=== PATIENT | male | born 1965 | race Caucasian/White ===

== ENCOUNTER 2017-09-15 09:20 | Day surgery (SDC) | payer OTHER ==
[2017-09-15] MEDS ORDERED: LACTATED RINGERS 1,000 ML IV ONE (09:29)
[2017-09-15] MEDS ORDERED: fentaNYL 250 MCG/5 ML VIAL IVP ONE (10:09)
[2017-09-15] MEDS ORDERED: MIDAZOLAM 2 MG/2 ML VIAL IVP ONE (10:09)
[2017-09-15 11:42] VITALS: BP 109/56
== END 2017-09-15 09:21 | disposition home or self-care (01) ==
LOC: SDS 09:20
PROVIDERS: ATTEND Surgery
PROC: 0DBN8ZX Excision of Sigmoid Colon, Via Natural or Artificial Opening Endoscopic, Diagnostic (ICD-10-PCS; 2017-09-15)
PROC: 0DBK8ZX Excision of Ascending Colon, Via Natural or Artificial Opening Endoscopic, Diagnostic (ICD-10-PCS; principal; 2017-09-15 10:30)
DX: K57.30 Diverticulosis of large intestine without perforation or abscess without bleeding (principal); R93.3 Abnormal findings on diagnostic imaging of other parts of digestive tract; D12.5 Benign neoplasm of sigmoid colon; D12.2 Benign neoplasm of ascending colon; I10 Essential (primary) hypertension
CPT/HCPCS: 45380; J3010; J7120; 88305

== ENCOUNTER 2018-10-27 15:58 | Outpatient (CLI) | payer OTHER ==
--- NOTE | 2018-10-28 10:36 | XRAY Report ---
Reason: PAIN IN RIGHT HIP Procedure Date: 10/27/2018 Accession Number: [id number] / [id number] Procedure: XR - Hip w/Pelvis 2-3V RT CPT Code: FULL RESULT: EXAM: RIGHT HIP RADIOGRAPHY EXAM DATE: 10/27/2018 04:29 PM. CLINICAL HISTORY: Pain in right hip. COMPARISON: None. TECHNIQUE: 2 views. FINDINGS: Bones: The right femoral head is deformed and demonstrates increasing sclerosis as well as subchondral cysts, suggestive of avascular necrosis. No fracture is seen. Joints: There is complete loss of the right hip joint space with increasing subchondral cyst formation and osteophytosis. Soft Tissues: Normal. No soft tissue swelling. IMPRESSION: Endstage changes of the right hip with complete joint space loss and evidence of avascular necrosis. RADIA
== END 2018-10-27 15:59 | disposition home or self-care (01) ==
LOC: DI 15:58
PROVIDERS: ATTEND Family Medicine
DX: M16.11 Unilateral primary osteoarthritis, right hip (principal)

== ENCOUNTER 2019-07-22 09:32 | Outpatient (CLI) | payer OTHER ==
--- NOTE | 2019-07-22 17:13 | XRAY Report ---
Reason: OSTEOARTHRITIS LEFT HIP,CHRONIC LOW BACK PAIN Procedure Date: 07/22/2019 Accession Number: [id number] / [id number] Procedure: XR - Lumbar Spine 2 View CPT Code: Final Report FULL RESULT: EXAM: LUMBOSACRAL SPINE RADIOGRAPHY EXAM DATE: 07/22/2019 09:56 AM. CLINICAL HISTORY: OSTEOARTHRITIS LEFT HIP, CHRONIC LOW BACK PAIN. COMPARISONS: HIP W/PELVIS 2-3V LT 07/22/2019 9:43 AM. TECHNIQUE: 2 views. FINDINGS: Alignment: 4 mm spondylotic anterolisthesis L5 on S1. Minimal left convex lumbar spine curvature. Bones: Five [id number]-[id number] lumbar vertebral bodies are present. Transitional vertebral body at the lumbosacral junction, presumably S1. No fractures or bone lesions. Disks: Mild disk height loss at L3-L4 and L5-S1. Mild anterior endplate osteophyte formation L3-L4 through L5-S1. Facets: Mild left greater than right facet sclerosis at L5-S1. Sacroiliac Joints: Unremarkable. Soft Tissues: Normal. The visualized bowel gas pattern is normal. IMPRESSION: 1. Mild L3-L4, minimal L4-L5, mild L5-S1 degenerative disk disease. 2. Mild left greater than right L5-S1 facet osteoarthritis and spondylotic grade 1 anterolisthesis L5 on S1. RADIA
--- NOTE | 2019-07-22 17:15 | XRAY Report ---
Reason: OSTEOARTHRITIS LEFT HIP,CHRONIC LOW BACK PAIN Procedure Date: 07/22/2019 Accession Number: [id number] / [id number] Procedure: XR - Hip w/Pelvis 2-3V LT CPT Code: Final Report FULL RESULT: EXAM: LEFT HIP RADIOGRAPHY EXAM DATE: 07/22/2019 09:56 AM. CLINICAL HISTORY: OSTEOARTHRITIS LEFT HIP, CHRONIC LOW BACK PAIN. COMPARISON: HIP W/PELVIS 2-3V RT 10/27/2018 4:14 PM LUMBAR SPINE 2 VIEW 07/22/2019 9:43 AM. TECHNIQUE: 3 views. FINDINGS: Bones: Normal. No fractures or bone lesion. Joints: None a cemented right total hip arthroplasty now is present and shows grossly-anatomic alignment. Progressive moderate generalized left hip joint space narrowing without osteophyte formation, erosion, subchondral sclerosis, or subchondral cyst formation. Soft Tissues: Normal. No soft tissue swelling. IMPRESSION: 1. Moderate left hip chondromalacia, progressive since 10/27/2018. 2. Right total hip arthroplasty showing grossly-anatomic alignment. RADIA
== END 2019-07-22 09:33 | disposition home or self-care (01) ==
LOC: DI 09:32
PROVIDERS: ATTEND Family Medicine
DX: M94.252 Chondromalacia, left hip (principal); M16.12 Unilateral primary osteoarthritis, left hip; Z96.642 Presence of left artificial hip joint; M51.36 Other intervertebral disc degeneration, lumbar region; M51.37 Other intervertebral disc degeneration, lumbosacral region; M47.817 Spondylosis without myelopathy or radiculopathy, lumbosacral region; M43.17 Spondylolisthesis, lumbosacral region
CPT/HCPCS: 72100

== ENCOUNTER 2019-08-31 07:14 | Emergency (ER) | payer OTHER ==
--- NOTE | 2019-08-31 07:28 | ED Physician Documentation ---
PD HPI ABD PAIN - Stated complaint Stated Complaint: ABD PX - Chief complaint Chief Complaint: Abd Pain - History obtained from History obtained from: Patient - History of Present Illness Timing - onset: How many days ago (3-4) Timing - duration: Days (3-4) Timing - details: Gradual onset, Still present, Waxing and waning Quality: Cramping, Aching Location: Epigastric, LUQ Radiation: Lower back Improved by: BM. No: Eating Worsened by: Palpation. No: Eating, Moving, Breathing Associated symptoms: Nausea. No: Fever, Vomiting, Diarrhea Similar symptoms before: Diagnosis (had diverticulitis of transverse colon twice with similar symptoms. No prior gastritis/ulcers (had EGD and colonoscopy after prior episode).) Recently seen: Not recently seen Review of Systems Constitutional: reports: Fatigue. denies: Fever, Chills, Myalgias Nose: denies: Rhinorrhea / runny nose, Congestion Throat: denies: Sore throat Respiratory: denies: Cough GI: reports: Abdominal Pain, Nausea. denies: Vomiting, Constipation, Diarrhea, Bloody / black stool Skin: denies: Rash, Lesions Neurologic: reports: Generalized weakness. denies: Near syncope PD PAST MEDICAL HISTORY - Past Medical History Cardiovascular: Hypertension, High cholesterol Respiratory: None Endocrine/Autoimmune: None GI: Diverticulitis : Kidney stones HEENT: None Psych: None Musculoskeletal: None Derm: None - Past Surgical History Past Surgical History: No Derm: Skin cancer surgery - Present Medications Home Medications: Ambulatory Orders Medication Instructions Recorded Confirmed Naproxen Sodium [Aleve] 220 mg PO DAILY PRN 09/15/17 09/15/17 Cephalexin [Keflex] 500 mg PO TID #21 capsule 08/31/19 Hydrocodone/Acetaminophen [[place] 1 each PO Q6H PRN #20 tablet 08/31/19 5-325 Tablet] Ondansetron Odt [Zofran] 4 mg TL Q6H PRN #20 tablet 08/31/19 metroNIDAZOLE [Flagyl] 500 mg PO BID #14 tablet 08/31/19 - Allergies Allergies/Adverse Reactions: Allergies Allergy/AdvReac Type Severity Reaction Status Date / Time alcohol Allergy Edema Verified 08/31/19 07:18 - Social History Does the pt smoke?: No Smoking Status: Never smoker Does the pt drink ETOH?: No Does the pt have substance abuse?: No PD ED PE NORMAL - Vitals Vital signs reviewed: Yes - General General: Alert and oriented X 3, No acute distress, Well developed/nourished - HEENT HEENT: Moist mucous membranes, Pharynx benign - Neck Neck: Supple, no meningeal sign, No adenopathy - Cardiac Cardiac: RRR, No murmur - Respiratory Respiratory: Clear bilaterally - Abdomen Abdomen: Normal bowel sounds, Soft, Non distended, No organomegaly, Other (tender mid to left upper abd, not directly epigastric per se. No guarding/percussion nor rebound tenderness. Lower abd not tender. ) Results - Vitals Vitals: Oxygen O2 Source Room air - Labs Labs: Laboratory Tests 08/31/19 08/31/19 07:30 07:30 WBC 16.8 H RBC 5.22 Hgb 15.1 Hct 45.6 MCV 87.4 MCH 28.9 MCHC 33.1 RDW 13.7 Plt Count 263 MPV 10.2 Neut # (Auto) 12.9 H Lymph # (Auto) 2.4 [place] # (Auto) 1.1 H Eos # (Auto) 0.2 Baso # (Auto) 0.1 Absolute Nucleated RBC 0.00 Nucleated RBC % 0.0 Sodium 134 L Potassium 3.9 Chloride 103 Carbon Dioxide 22 Anion Gap 9.0 BUN 15 Creatinine 0.9 Estimated GFR (MDRD) 88 L Glucose 167 H Calcium 9.2 Total Bilirubin 1.2 H AST 27 ALT 28 Alkaline Phosphatase 59 Total Protein 7.8 Albumin 4.2 Globulin 3.6 Albumin/Globulin Ratio 1.2 Lipase 30 PD MEDICAL DECISION MAKING - ED course Complexity details: considered differential (he states feels similar to prior diverticulitis episodes x 2. Will treat empirically. He is good with no imaging, after shared decision making discussion. ), d/w patient Departure - Departure Disposition: 01 Home, Self Care Clinical Impression: Upper abdominal pain, Acute diverticulitis of intestine Condition: Stable Record reviewed to determine appropriate education?: Yes Instructions: ED Diverticulitis Follow-Up: Jose Alfredo Dhaliwal MD [Primary Care Provider] - Prescriptions: Cephalexin [Keflex] 500 mg PO TID #21 capsule Hydrocodone/Acetaminophen [[place] 5-325 Tablet] 1 each PO Q6H PRN #20 tablet PRN Reason: Pain metroNIDAZOLE [Flagyl] 500 mg PO BID #14 tablet Ondansetron Odt [Zofran] 4 mg TL Q6H PRN #20 tablet PRN Reason: Nausea / Vomiting Comments: Stay well-hydrated. Use ondansetron if needed for nausea and Tylenol or hydrocodone if needed for pain. Stool softener as needed. We will presume this is a episode of diverticulitis and treated with the cephalexin and metronidazole antibiotics. You can use some anti-inflammatory as well such as naproxen once or twice daily. Recheck if not improving well over the next couple of days and resolved within 4 to 5 days. Return if worsening. Discharge Date/Time: 08/31/19 09:36
[2019-08-31 07:46] LABS: BASOPHILS # (AUTO) 0.1 10^3/uL (0.0-0.1); BASOPHILS % (AUTO) 0.5 %; EOSINOPHILS # (AUTO) 0.2 10^3/uL (0.0-0.7); EOSINOPHILS % (AUTO) 1.1 %; HGB - HEMOGLOBIN 15.1 g/dL (14.0-18.0); LYMPHOCYTES # (AUTO) 2.4 10^3/uL (1.5-3.5); LYMPHOCYTES % (AUTO) 14.5 %; MEAN CORPUSCULAR HEMOGLOBIN 28.9 pg (27.0-31.0); MEAN CORPUSCULAR HGB CONC 33.1 g/dL (32.0-36.0); MEAN CORPUSCULAR VOLUME 87.4 fL (80.0-94.0); MEAN PLATELET VOLUME 10.2 fL (7.4-11.4); MONOCYTES # (AUTO) 1.1 10^3/uL (0.0-1.0); MONOCYTES % (AUTO) 6.6 %; NEUTROPHILS # (AUTO) 12.9 10^3/uL (1.5-6.6); NEUTROPHILS % (AUTO) 76.6 %; PLT - PLATELET COUNT 263 10^3/uL (130-450); RED BLOOD COUNT 5.22 10^6/uL (4.70-6.10); RED CELL DISTRIBUTION WIDTH 13.7 % (12.0-15.0); WHITE BLOOD COUNT 16.8 x10^3/uL (4.8-10.8)
[2019-08-31 08:02] LABS: ALBUMIN 4.2 g/dL (3.2-5.5); ALBUMIN/GLOBULIN RATIO 1.2 (1.0-2.2); BILIRUBIN,TOTAL 1.2 mg/dL (0.2-1.0); CALCIUM 9.2 mg/dL (8.5-10.3); CREATININE 0.9 mg/dL (0.6-1.2); TOTAL PROTEIN 7.8 g/dL (6.7-8.2)
[2019-08-31] MEDS: SODIUM CHLORIDE 0.9% 1,000 ML IV ONE (08:14)
[2019-08-31] MEDS: KETOROLAC 30 MG/ML VIAL IVP STA (08:14)
[2019-08-31] MEDS: cefTRIAXone 1 GM VIAL IVP STA (08:14)
[2019-08-31] MEDS: metroNIDAZOLE 250 MG TABLET PO STA (08:14)
[2019-08-31] MEDS: HYDROmorphone 1 MG/ML CARPUJECT IVP STA ×2 (08:29→08:37)
[2019-08-31] MEDS: HYDROmorphone 1 MG/ML SYRINGE IVP STA (08:37)
[2019-08-31] MEDS: HYDROmorphone 0.5 MG/0.5 ML SYRINGE IVP STA (08:37)
[2019-08-31 09:05] VITALS: BP 137/68
== END 2019-08-31 09:36 | disposition home or self-care (01) ==
LOC: ED 07:14
DX: K57.92 Diverticulitis of intestine, part unspecified, without perforation or abscess without bleeding (principal); I10 Essential (primary) hypertension
CPT/HCPCS: 36415; 80053; 83690; 85025; 96374; 96375; 99284

== ENCOUNTER 2020-04-04 10:27 | Outpatient (CLI) | payer OTHER ==
--- NOTE | 2020-04-04 13:16 | Ultrasound Report ---
PROCEDURE: Chest INDICATIONS: LUMP RIGHT UPPER BACK TECHNIQUE: Real-time scanning was performed in the area of interest at the right upper back, with documentation of grayscale and color flow images. COMPARISON: None. FINDINGS: A 0.5 x 0.3 x 0.5 cm oval hypoechoic lesion is seen within the skin in the area of interest at the [facility] upper back. No significant internal vascularity is identified. IMPRESSION: Nonspecific 5 mm hypoechoic lesion in the skin of the right upper back at the patient indicated an ar ea of concern. Differential considerations include benign and malignant skin lesions, and correlation with clinical exam findings and possible Dermatology consultation are recommended. Reviewed by: Jose J Deluna MD on 04/04/2020 12:15 PM [facility] Approved by: Jose J Deluna MD on 04/04/2020 12:15 PM [facility] Station ID: [id number]
== END 2020-04-04 10:28 | disposition home or self-care (01) ==
LOC: DI 10:27
PROVIDERS: ATTEND Nurse Practitioner Family
DX: R93.89 Abnormal findings on diagnostic imaging of other specified body structures (principal)

== ENCOUNTER 2020-08-12 12:36 | Emergency (ER) | payer OTHER ==
[2020-08-12 12:59] LABS: BASOPHILS # (AUTO) 0.1 10^3/uL (0.0-0.1); BASOPHILS % (AUTO) 0.8 %; EOSINOPHILS # (AUTO) 0.3 10^3/uL (0.0-0.7); EOSINOPHILS % (AUTO) 3.4 %; HCT - HEMATOCRIT 46.7 % (42.0-52.0); HGB - HEMOGLOBIN 15.6 g/dL (14.0-18.0); LYMPHOCYTES # (AUTO) 2.9 10^3/uL (1.5-3.5); LYMPHOCYTES % (AUTO) 30.2 %; MEAN CORPUSCULAR HGB CONC 33.4 g/dL (32.0-36.0); MEAN CORPUSCULAR VOLUME 86.8 fL (80.0-94.0); MEAN PLATELET VOLUME 10.7 fL (7.4-11.4); MONOCYTES # (AUTO) 0.9 10^3/uL (0.0-1.0); MONOCYTES % (AUTO) 9.3 %; NEUTROPHILS # (AUTO) 5.5 10^3/uL (1.5-6.6); NEUTROPHILS % (AUTO) 56.1 %; RED BLOOD COUNT 5.38 10^6/uL (4.70-6.10); WHITE BLOOD COUNT 9.7 x10^3/uL (4.8-10.8)
[2020-08-12 13:02] LABS: SLIDE REVIEW? Indicated
[2020-08-12] MEDS ORDERED: DEXAMETHASONE 10 MG/ML VIAL IVP STA (13:03)
[2020-08-12] MEDS ORDERED: KETOROLAC 30 MG/ML VIAL IVP STA (13:03)
[2020-08-12] MEDS ORDERED: SODIUM CHLORIDE 0.9% 1,000 ML IV STA (13:03)
[2020-08-12 13:11] LABS: ALBUMIN 4.8 g/dL (3.2-5.5); ALBUMIN/GLOBULIN RATIO 1.7 (1.0-2.2); BILIRUBIN,TOTAL 0.5 mg/dL (0.2-1.0); CALCIUM 10.2 mg/dL (8.5-10.3); CREATININE 0.8 mg/dL (0.6-1.2); POTASSIUM 4.1 mmol/L (3.5-5.0); TOTAL PROTEIN 7.7 g/dL (6.7-8.2)
[2020-08-12 13:14] LABS: PLATELET MORPHOLOGY NORMAL APPEARANCE (NORMAL); PLT - PLATELET COUNT 221 10^3/uL (130-450)
[2020-08-12 13:20] LABS: BILIRUBIN,URINE NEGATIVE (NEGATIVE); GLUCOSE, URINE (UA) NEGATIVE (NEGATIVE); KETONES,URINE (UA) NEGATIVE (NEGATIVE); LEUKOCYTE ESTERASE, URINE NEGATIVE (NEGATIVE); NITRITE,URINE NEGATIVE (NEGATIVE); OCCULT BLOOD,URINE NEGATIVE (NEGATIVE); PROTEIN,URINE NEGATIVE (NEGATIVE); UROBILINOGEN,URINE 0.2 (NORMAL) E.U./dL (NORMAL)
[2020-08-12 13:25] LABS: CLARITY,URINE CLEAR (CLEAR)
--- NOTE | 2020-08-12 14:15 | ED Physician Documentation ---
PD HPI BACK PAIN - Stated complaint Stated Complaint: BACK/ABD PX - Chief complaint Chief Complaint: Abd Pain - History obtained from History obtained from: Patient - History of Present Illness Timing - onset: Today Timing - duration: Hours Timing - details: Abrupt onset, Still present Location: Lower, Right, Left Quality: Pain, Spasm, Sharp, Similar to prior episodes Associated symptoms: No: Fever, Weakness, Numbness, Incontinent of urine, Unable to urinate, Hematuria, Incontinent of stool Improves with: Rest, Position Worsened by: Movement Contributing factors: Other (works as a sole painter) Similar symptoms before: Diagnosis (kidney stone/diverticuliltis) Recently seen: Not recently seen - Additional information Additional information: 54-year-old male with a prior history of kidney stone is coming to the emergency department this morning with pain in his back. He states the pain started out severely when he went to bend over slightly and he has this pain bilaterally. He felt at first maybe he had a problem with his diverticulitis but he did not find that he had any tenderness. He does have pain when he moves and if he is quite still he has improvement in his pain. 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 He has had episodes of back spasm previously that are short-lived and usually resolve with stretching. He does have a problem with cramping in his legs especially at night and especially if he does not adequately hydrate. Review of Systems Constitutional: denies: Fever Eyes: denies: Decreased vision Ears: denies: Ear pain Nose: denies: Congestion Throat: denies: Sore throat Cardiac: denies: Chest pain / pressure Respiratory: denies: Dyspnea, Cough, Wheezing GI: denies: Abdominal Pain, Nausea, Vomiting, Diarrhea : denies: Dysuria, Frequency Skin: denies: Rash Musculoskeletal: reports: Back pain. denies: Neck pain, Extremity pain Neurologic: denies: Generalized weakness, Focal weakness, Numbness PD PAST MEDICAL HISTORY - Past Medical History Past Medical History: Yes Cardiovascular: Hypertension, High cholesterol Respiratory: None Neuro: None Endocrine/Autoimmune: None GI: Diverticulitis : Kidney stones HEENT: None Psych: None Musculoskeletal: None Derm: None - Past Surgical History Past Surgical History: Yes Ortho: Hip replacement Derm: Skin cancer surgery - Present Medications Home Medications: Ambulatory Orders Medication Instructions Recorded Confirmed Naproxen Sodium [Aleve] 220 mg PO DAILY PRN 09/15/17 09/15/17 Hydrocodone/Acetaminophen [[place] 1 each PO Q6H PRN #20 tablet 08/31/19 5-325 Tablet] Ondansetron Odt [Zofran] 4 mg TL Q6H PRN #20 tablet 08/31/19 cephALEXin [Keflex] 500 mg PO TID #21 capsule 08/31/19 metroNIDAZOLE [Flagyl] 500 mg PO BID #14 tablet 08/31/19 - Allergies Allergies/Adverse Reactions: Allergies Allergy/AdvReac Type Severity Reaction Status Date / Time alcohol Allergy Edema Verified 08/12/20 12:39 - Social History Does the pt smoke?: No Smoking Status: Never smoker Does the pt drink ETOH?: No Does the pt have substance abuse?: No - Immunizations Immunizations are current?: Yes PD ED PE NORMAL - Vitals Vital signs reviewed: Yes (Hypertensive mild) - General General: Alert and oriented X 3, No acute distress, Well developed/nourished - HEENT HEENT: Atraumatic, PERRL, EOMI - Neck Neck: Supple, no meningeal sign - Cardiac Cardiac: RRR, No murmur - Respiratory Respiratory: No respiratory distress, Clear bilaterally - Abdomen Abdomen: Normal bowel sounds, Soft, Non tender, Non distended, No organomegaly - Back Back: No CVA TTP, No spinal TTP, Other (There is mild tenderness to the paraspinous muscles at the L2 level bilaterally worse on the left than the right. 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, No motor deficit, No sensory deficit, Normal speech Eye Opening: Spontaneous Motor: Obeys Commands Verbal: Oriented GCS Score: 15 - Psych Psych: Normal mood, Normal affect Results - Vitals Vitals: Vital Signs - 24 hr 08/12/20 08/12/20 12:39 13:04 Temperature 36.6 C Heart Rate 61 56 L Respiratory 16 16 Rate Blood Pressure 160/80 H 161/87 H O2 Saturation 99 97 Oxygen O2 Source Room air - Labs Labs: Laboratory Tests 08/12/20 08/12/20 08/12/20 12:45 12:52 12:52 WBC 9.7 RBC 5.38 Hgb 15.6 Hct 46.7 MCV 86.8 MCH 29.0 MCHC 33.4 RDW 13.0 Plt Count 221 MPV 10.7 Neut # (Auto) 5.5 Lymph # (Auto) 2.9 [place] # (Auto) 0.9 Eos # (Auto) 0.3 Baso # (Auto) 0.1 Absolute Nucleated RBC 0.00 Nucleated RBC % 0.0 Manual Slide Review Indicated Platelet Morphology NORMAL APPEARANCE Sodium 137 Potassium 4.1 Chloride 104 Carbon Dioxide 24 Anion Gap 9.0 BUN 24 H Creatinine 0.8 Estimated GFR (MDRD) 101 Glucose 99 Calcium 10.2 Total Bilirubin 0.5 AST 34 ALT 46 Alkaline Phosphatase 51 Total Protein 7.7 Albumin 4.8 Globulin 2.9 Albumin/Globulin Ratio 1.7 Lipase 35 Urine Color LIGHT YELLOW Urine Clarity CLEAR Urine pH 6.0 Ur Specific [place] <=1.005 Urine Protein NEGATIVE Urine Glucose (UA) NEGATIVE Urine Ketones NEGATIVE Urine Occult Blood NEGATIVE Urine Nitrite NEGATIVE Urine Bilirubin NEGATIVE Urine Urobilinogen 0.2 (NORMAL) Ur Leukocyte Esterase NEGATIVE Ur Microscopic Review NOT INDICATED Urine Culture Comments NOT INDICATED Procedures - Bedside sono Bedside sono by EMP: With use of bedside ultrasound the right kidney is imaged 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 The kidney is sonographically nontender. The left is imaged as well with similar findings with the exception of there is only a single kidney on the left side. - IVC sono (time) 1255 Bedside IVC sono: IVC measures (cm) (0.92), Dehydration (est 1-2 liter deficit) PD MEDICAL DECISION MAKING - ED course Complexity details: reviewed results, re-evaluated patient, considered differential, d/w patient ED course: 54-year-old male with acute back spasm is found to be dehydrated on interrogation the inferior vena cava and his administered intravenous saline. He is also administered intravenous dexamethasone and Toradol. He has improvement in his pain. He was worried about the possibility of diverticulitis and possibly kidney stone. He has a nontender exam he is afebrile with normal white blood cell count and he has on bedside ultrasound no evidence of hydronephrosis. He has bilateral pain tender muscles in pain with movement. Departure - Departure Disposition: 01 Home, Self Care Clinical Impression: Spasm of back muscles, Dehydration Condition: Stable Instructions: ED Spasm Back No Trauma, ED Dehydration Follow-Up: Jose Alfredo Dhaliwal MD [Primary Care Provider] -
[2020-08-12 14:29] VITALS: BP 148/89
== END 2020-08-12 14:32 | disposition home or self-care (01) ==
LOC: ED 12:36
DX: M62.830 Muscle spasm of back (principal); E86.0 Dehydration
CPT/HCPCS: 36415; 80053; 81001; 81003; 83690; 85025; 87086; 96361; 96374; 96375; 99284

== ENCOUNTER 2021-11-30 14:59 | Outpatient (CLI) | payer OTHER ==
--- NOTE | 2021-11-30 16:27 | XRAY Report ---
PROCEDURE: Foot 3 View RT INDICATIONS: PAIN IN RIGHT FOOT TECHNIQUE: 3 views of the foot were acquired. COMPARISON: None FINDINGS: Bones: No fractures or dislocations. No suspicious bony lesions. Joint space narrowing and periart icular osteophyte formation at the first metatarsophalangeal joint. Calcaneal spurring is present. Soft tissues: No tibiotalar joint effusion. Achilles tendon appears normal. IMPRESSION: 1. Osteoarthritis. 2. Calcaneal spurring which may indicate plantar fasciitis and/or Achilles tendinitis. This could be further assessed with MRI, if clinically indicated. 3. No acute fracture. No osseous lesion. If symptoms and/or clinical suspicion for pathology continue , further assessment with repeat plain films, or advanced imaging (e.g., CT, MRI, or bone scan) is re commended for further assessment. Reviewed by: Basilia Cao MD on 11/30/2021 4:25 PM PDT Approved by: Basilia Cao MD on 11/30/2021 4:25 PM PDT Station ID: [id number]
== END 2021-11-30 15:00 | disposition home or self-care (01) ==
LOC: DI 14:59
PROVIDERS: ATTEND Physician Assistant
DX: M19.071 Primary osteoarthritis, right ankle and foot (principal); M77.31 Calcaneal spur, right foot

== ENCOUNTER 2022-08-16 13:03 | Outpatient (CLI) | payer OTHER | END 2022-08-16 13:04 | disposition critical access hospital (66) | LOC: EMS 13:03 | DX: R10.84 Generalized abdominal pain (principal); K59.00 Constipation, unspecified; R14.0 Abdominal distension (gaseous); Z98.890 Other specified postprocedural states | CPT/HCPCS: A0425; A0429 ==

== ENCOUNTER 2022-08-16 13:19 | Emergency (ER) | payer OTHER ==
[2022-08-16] MEDS ORDERED: LORazepam 2 MG/ML VIAL IVP STA (13:38)
[2022-08-16] MEDS ORDERED: SODIUM CHLORIDE 0.9% 1,000 ML IV STA (13:38)
[2022-08-16] MEDS ORDERED: KETOROLAC 15 MG/ML VIAL IVP STA (13:38)
--- NOTE | 2022-08-16 13:39 | ED Physician Documentation ---
PD HPI ABD PAIN - Stated complaint Stated Complaint: ABD PX - Chief complaint Chief Complaint: Abd Pain - History obtained from History obtained from: Patient - Additional information Additional information: 56-year-old gentleman had a hip replacement a few days ago and has been on oxycodone. He has not been able to have a bowel movement since and has severe rectal pain and now urinary retention as well and he is very uncomfortable with body wide spasms related to this. He tried magnesium at home and a suppository which were ineffective. PD PAST MEDICAL HISTORY - Past Medical History Cardiovascular: Hypertension, High cholesterol Respiratory: None Neuro: None Endocrine/Autoimmune: None GI: Diverticulitis : Kidney stones HEENT: None Psych: None Musculoskeletal: None Derm: None - Past Surgical History Past Surgical History: Yes Ortho: Hip replacement Derm: Skin cancer surgery - Present Medications Home Medications: Ambulatory Orders Medication Instructions Recorded Confirmed Naproxen Sodium [Aleve] 220 mg PO DAILY PRN 09/15/17 09/15/17 Hydrocodone/Acetaminophen [[place] 1 each PO Q6H PRN #20 tablet 08/31/19 5-325 Tablet] Ondansetron Odt [Zofran] 4 mg TL Q6H PRN #20 tablet 08/31/19 cephALEXin [Keflex] 500 mg PO TID #21 capsule 08/31/19 metroNIDAZOLE [Flagyl] 500 mg PO BID #14 tablet 08/31/19 - Allergies Allergies/Adverse Reactions: Allergies Allergy/AdvReac Type Severity Reaction Status Date / Time alcohol Allergy Edema Verified 08/16/22 13:33 - Social History Does the pt smoke?: No Smoking Status: Never smoker Does the pt drink ETOH?: No Does the pt have substance abuse?: No - Immunizations Immunizations are current?: Yes PD ED PE NORMAL - Vitals Vital signs reviewed: Yes - General General: Alert and oriented X 3, Other (Appears uncomfortable) - Abdomen Abdomen: Soft, Non tender - Rectal Rectal: Other (Large firm fecal impaction) Results - Vitals Vitals: Vital Signs - 24 hr 08/16/22 13:27 Temperature 36.8 C Heart Rate 76 Respiratory 18 Rate Blood Pressure 174/99 H O2 Saturation 98 Oxygen O2 Source Room air PD Medical Decision Making - ED course ED course: 56-year-old gentleman presents with opiate induced fecal impaction. After combination of digital disimpaction and an enema he had a large successful bowel movement and his urinary retention also resolved. Departure - Departure Disposition: 01 Home, Self Care Clinical Impression: Fecal impaction Condition: Good Record reviewed to determine appropriate education?: Yes Instructions: ED Impaction Fecal Treated Comments: Reasonable to take [id number] MiraLAX for the next couple of days to keep the bowels moving. Return for new or worsening symptoms.
--- OUTSIDE RECORDS SUMMARY | 2022-08-16 14:36 | EXTERNAL MEDICAL SUMMARY RPT | Continuity of Care Document ---
:1965 Author Organization [facility] Address [address] [place] [address] Phone Care Team Providers Name Role Phone Unavailable Unavailable Unavailable Jose Alfredo Dhaliwal Unavailable Unavailable Allergies and Intolerances date description facility type (no date) alcohol [facility] (unknown) Encounters No information. Functional Status No information. Immunizations No information. Medications date description facility 2022-07-10 00:00 Celecoxib [facility] 2022-07-10 00:00 Rosuvastatin [facility] 2022-08-14 00:00 Hydroxyzine Pamoate [facility] Problems date description facility 2022-07-01 07:11 Urinary tract infection, site not [facility] 2022-07-01 07:11 Hyperglycemia, unspecified [facility] 2022-07-01 07:11 Encounter for preprocedural [facility] examination 2022-07-01 07:11 Encounter for other preprocedural [facility] 2022-07-01 07:17 Urinary tract infection, site not [facility] 2022-07-01 07:17 Hyperglycemia, unspecified [facility] 2022-07-01 07:17 Encounter for preprocedural [facility] examination 2022-07-01 07:17 Encounter for other preprocedural [facility] 2022-07-02 09:43 Urinary tract infection, site not [facility] 2022-07-02 09:43 Hyperglycemia, unspecified [facility] 2022-07-02 09:43 Encounter for preprocedural [facility] examination 2022-07-02 09:43 [facility] 2022-08-13 00:00 Arthritis of [facility] 2022-08-13 06:05 Unilateral primary osteoarthritis, [facility] 2022-08-13 06:05 Pain in right [facility] 2022-08-13 06:48 Unilateral primary osteoarthritis, left [facility] 2022-08-13 06:48 Pain in right [facility] 2022-08-13 08:51 Unilateral primary osteoarthritis, [facility] 2022-08-13 08:51 Unilateral primary osteoarthritis, left [facility] 2022-08-13 08:51 Pain in right [facility] 2022-08-13 08:55 Unilateral primary osteoarthritis, [facility] hip 2022-08-13 08:55 Unilateral primary osteoarthritis, left [facility] 2022-08-13 08:55 Pain in right [facility] 2022-08-14 07:01 Unilateral primary osteoarthritis, [facility] 2022-08-14 07:01 Unilateral primary osteoarthritis, left [facility] 2022-08-14 07:01 Pain in right [facility] 2022-08-14 08:11 Unilateral primary osteoarthritis, [facility] 2022-08-14 08:11 Unilateral primary osteoarthritis, left [facility] 2022-08-14 08:11 Pain in right [facility] 2022-08-14 10:04 Unilateral primary osteoarthritis, [facility] 2022-08-14 10:04 Unilateral primary osteoarthritis, left [facility] 2022-08-14 10:04 Pain in right [facility] 2022-08-14 11:16 Unilateral primary osteoarthritis, [facility] 2022-08-14 11:16 Unilateral primary osteoarthritis, left [facility] 2022-08-14 11:16 Pain in right [facility] 2022-08-14 13:24 Unilateral primary osteoarthritis, [facility] 2022-08-14 13:24 Unilateral primary osteoarthritis, left [facility] 2022-08-14 13:24 Pain in right [facility] Procedures date description facility 2022-08-13 00:00 XR pelvis, 1-2 views [facility] 2022-08-13 00:00 Unilateral x-ray of hip, two views, wit h x-ray [facility] of pelvis 2022-08-13 00:00 Total Hip Arthroplasty (Left) [facility] Results/Labs test date author facility value unit interpret ation Result panel 1 (unknown) (no date) (unknown) [facility]) Result panel 2 (unknown) (no date) (unknown) [facility] Result panel 3 (unknown) (no date) ([facility]) Result panel 4 (unknown) (no date) (unknown[facility]) Result panel 5 (unknown) (no date) (unknown[facility]) Result panel 6 (unknown) (no date) (unknown[facility]) Result panel 7 (unknown) (no date) (unknown[facility]) Result panel 8 (unknown) (no date) (unknown[facility]) Result panel 9 (unknown) (no date) (unknown[facility]) Result panel 10 (unknown) (no date) (unknown[facility]) Result panel 11 (unknown) (no date) (unknown[facility]) Result panel 12 (unknown) (no date) (unknown[facility]) Result panel 13 (unknown) (no date) (unknown[facility]) Result panel 14 (unknown) (no date) (unknown[facility]) Result panel 15 (unknown) (no date) (unknown[facility]) Result panel 16 (unknown) (no date) (unknown[facility]) Result panel 17 (unknown) (no date) (unknown[facility]) Result panel 18 (unknown) (no date) (unknown[facility]) Result panel 19 (unknown) (no date) (unknown[facility]) Result panel 20 (unknown) (no date) (unknown[facility]) Result panel 21 (unknown) (no date) (unknown[facility]) Result panel 22 (unknown) (no date) (unknown[facility]) Result panel 23 (unknown) (no date) (unknown[facility]) Result panel 24 (unknown) (no date) (unknown[facility]) Result panel 25 (unknown) (no date) (unknown[facility]) Result panel 26 (unknown) (no date) (unknown[facility]) Result panel 27 (unknown) (no date) (unknown[facility]) Result panel 28 (unknown) (no date) (unknown[facility]) Result panel 29 (unknown) (no date) (unknown[facility]) Result panel 30 (unknown) (no date) (unknown[facility]) Result panel 31 (unknown) (no date) (unknown[facility]) Result panel 32 (unknown) (no date) (unknown[facility]) Result panel 33 (unknown) (no date) (unknown[facility]) Result panel 34 (unknown) (no date) (unknown[facility]) Result panel 35 (unknown) (no date) (unknown[facility]) Result panel 36 (unknown) (no date) (unknown[facility]) Result panel 37 (unknown) (no date) (unknown[facility]) Result panel 38 (unknown) (no date) (unknown[facility]) Result panel 39 (unknown) (no date) (unknown[facility]) Result panel 40 (unknown) (no date) (unknown[facility]) Result panel 41 (unknown) (no date) (unknown[facility]) Result panel 42 (unknown) (no date) (unknown[facility]) Result panel 43 (unknown) (no date) (unknown[facility]) Result panel 44 (unknown) (no date) (unknown[facility]) Result panel 45 (unknown) (no date) (unknown[facility]) Result panel 46 (unknown) (no date) (unknown[facility]) Result panel 47 (unknown) (no date) (unknown[facility]) Result panel 48 (unknown) (no date) (unknown[facility]) Result panel 49 (unknown) (no date) (unknown[facility]) Result panel 50 (unknown) (no date) (unknown[facility]) Result panel 51 (unknown) (no date) (unknown[facility]) Result panel 52 (unknown) (no date) (unknown[facility]) Result panel 53 (unknown) (no date) (unknown[facility]) Result panel 54 (unknown) (no date) (unknown[facility]) Result panel 55 (unknown) (no date) (unknown[facility]) Result panel 56 (unknown) (no date) (unknown[facility]) Result panel 57 (unknown) (no date) (unknown[facility]) Result panel 58 (unknown) (no date) (unknown[facility]) Result panel 59 (unknown) (no date) (unknown[facility]) Result panel 60 (unknown) (no date) (unknown[facility]) Result panel 61 (unknown) (no date) (unknown[facility]) Result panel 62 (unknown) (no date) (unknown[facility]) Result panel 63 (unknown) (no date) (unknown[facility]) Result panel 64 (unknown) (no date) (unknown[facility]) Result panel 65 (unknown) (no date) (unknown[facility]) Result panel 66 (unknown) (no date) (unknown[facility]) Result panel 67 (unknown) (no date) (unknown[facility]) Result panel 68 (unknown) (no date) (unknown[facility]) Result panel 69 (unknown) (no date) (unknown[facility]) Result panel 70 (unknown) (no date) (unknown[facility]) Result panel 71 (unknown) (no date) (unknown[facility]) Result panel 72 (unknown) (no date) (unknown[facility]) Result panel 73 (unknown) (no date) (unknown[facility]) Result panel 74 (unknown) (no date) (unknown[facility]) Result panel 75 (unknown) (no date) (unknown[facility]) Result panel 76 (unknown) (no date) (unknown[facility]) Result panel 77 (unknown) (no date) (unknown[facility]) Result panel 78 (unknown) (no date) (unknown[facility]) Result panel 79 (unknown) (no date) (unknown[facility]) Result panel 80 (unknown) (no date) (unknown[facility] Result panel 81 (unknown) (no date) (unknown) (unknown) > 60 ml/min (unkn own) (unknown) (no date) (unknown) (unknown) > 60 ml/min (unkn own) (unknown) (no date) (unknown) (unknown) 0.71 mg/dl (unkn own) (unknown) (no date) (unknown) (unknown) 102 mmol/l (unkn own) (unknown) (no date) (unknown) (unknown) 137 mmol/l (unkn own) (unknown) (no date) (unknown) (unknown) 17 mg/dl (unkn own) (unknown) (no date) (unknown) (unknown) 23.9 (units unknown) (unknown) (unknown) (no date) (unknown) (unknown) 25 mmol/l (unkn own) (unknown) (no date) (unknown) (unknown) 4.2 mmol/l (unkn own) (unknown) (no date) (unknown) (unknown) 9.0 mg/dl (unkn own) (unknown) (no date) (unknown) (unknown) 90 mg/dl (unkn own) (unknown) (no date) (unknown) (unknown) 90 mg/dl (unkn own) Result panel 82 (unknown) (no date) (unknown) (unknown) 0.8 % (unkn own) (unknown) (no date) (unknown) (unknown) 10.4 % (unkn own) (unknown) (no date) (unknown) (unknown) 100 /ul (unkn own) (unknown) (no date) (unknown) (unknown) 13.4 % (unkn own) (unknown) (no date) (unknown) (unknown) 15.6 g/dl (unkn own) (unknown) (no date) (unknown) (unknown) 200 /ul (unkn own) (unknown) (no date) (unknown) (unknown) 236 x10 3/ul (unkn own) (unknown) (no date) (unknown) (unknown) 2700 /ul (unkn own) (unknown) (no date) (unknown) (unknown) 29.2 pg (unkn own) (unknown) (no date) (unknown) (unknown) 3.0 % (unkn own) (unknown) (no date) (unknown) (unknown) 33.9 % (unkn own) (unknown) (no date) (unknown) (unknown) 34.6 % (unkn own) (unknown) (no date) (unknown) (unknown) 4100 /ul (unkn own) (unknown) (no date) (unknown) (unknown) 45.9 % (unkn own) (unknown) (no date) (unknown) (unknown) 5.34 x10 6/ul (unkn own) (unknown) (no date) (unknown) (unknown) 51.2 % (unkn own) (unknown) (no date) (unknown) (unknown) 7.9 x10 3/ul (unkn own) (unknown) (no date) (unknown) (unknown) 800 /ul (unkn own) (unknown) (no date) (unknown) (unknown) 86.1 fl (unkn own) Result panel 83 (unknown) (no date) (unknown) (unknown) 0.2 e.u./dl (unkn own) (unknown) (no date) (unknown) (unknown) 1.025 (units (unkn own) unknown) (unknown) (no date) (unknown) (unknown) 6.0 (units (unkn own) unknown) (unknown) (no date) (unknown) (unknown) CLEAR (units (unkn own) unknown) (unknown) (no date) (unknown) (unknown) NEGATIVE (units (unkn own) unknown) (unknown) (no date) (unknown) (unknown) NEGATIVE g/dl (unkn own) (unknown) (no date) (unknown) (unknown) YELLOW (units (unkn own) unknown) (unknown) (no date) (unknown) (unknown) YELLOW (units (unkn own) unknown) Result panel 84 (unknown) (no date) (unknown) (unknown) 0-1 /HPF (units (unkn own) unknown) (unknown) (no date) (unknown) (unknown) 0-1/HPF (units (unkn own) unknown) (unknown) (no date) (unknown) (unknown) 0.2 e.u./dl (unkn own) (unknown) (no date) (unknown) (unknown) 1.025 (units (unkn own) unknown) (unknown) (no date) (unknown) (unknown) 6.0 (units (unkn own) unknown) (unknown) (no date) (unknown) (unknown) CLEAR (units (unkn own) unknown) (unknown) (no date) (unknown) (unknown) Cult Not (units (unkn own) Indicated unknown) (unknown) (no date) (unknown) (unknown) NEGATIVE (units (unkn own) unknown) (unknown) (no date) (unknown) (unknown) NEGATIVE g/dl (unkn own) (unknown) (no date) (unknown) (unknown) None Seen (units (unk nown) unknown) (unknown) (no date) (unknown) (unknown) Occasional (units (un known) (0-1) unknown) (unknown) (no date) (unknown) (unknown) YELLOW (units (unkn own) unknown) (unknown) (no date) (unknown) (unknown) YELLOW (units (unkn own) unknown) Result panel 85 (unknown) (no date) (unknown) (unknown) 5.4 % (unkn own) (unknown) (no date) (unknown) (unknown) 5.4 % (unkn own) Result panel 86 (unknown) (no (unknown) (unknown) (no value) (units (unk nown) date) unknown) (unknown) (no (unknown) (unknown) [id number] (units (unkno wn) date) unknown) (unknown) (no (unknown) (unknown) 08/13/22 (units (unkno wn) date) unknown) (unknown) (no (unknown) (unknown) [address] [place] [address] (units (unknown) date) unknown) (unknown) (no (unknown) (unknown) Accession (units (unkn own) date) Number: unknown) [id number] (unknown) (no (unknown) (unknown) Age/Sex: 56 / M (units (unknown) date) Date of Service: unknown) (unknown) (no (unknown) (unknown) [place], [place] (units ( unknown) date) [id number] unknown) (unknown) (no (unknown) (unknown) Approved by: (units (u nknown) date) Matheus Cameron M.D. unknown) on 08/13/2022 at 12:23 (unknown) (no (unknown) (unknown) Bones: (units (unkno wn) date) Intraoperative unknown) devices prior to placement of arthroplasty prostheses are (unknown) (no (unknown) (unknown) COMPARISON: (units (un known) date) [facility], unknown) CR, XR HIP W PEL IF DONE LT 2V, 08/13/2022, 10:26. (unknown) (no (unknown) (unknown) : 1965 (units (unknown) date) Acct:[id number] unknown) (unknown) (no (unknown) (unknown) Dictated by: (units (u nknown) date) Matheus Cameron M.D. unknown) on 08/13/2022 at 12:22 (unknown) (no (unknown) (unknown) FINDINGS: (units (unkn own) date) unknown) (unknown) (no (unknown) (unknown) IMPRESSION: (units (un known) date) Right hip unknown) arthroplasty. (unknown) (no (unknown) (unknown) INDICATIONS: (units (u nknown) date) prosthesis unknown) placement/inner op (unknown) (no (unknown) (unknown) [facility] (units (unknown) date) unknown) (unknown) (no (unknown) (unknown) Loc: AC 203-1 (units ( unknown) date) unknown) (unknown) (no (unknown) (unknown) [place] (units (unkn own) date) Orthopedic unknown) TERRY Waters, XR PELVIS 1 OR 2 VIEWS, 07/12/2022, 14:41. (unknown) (no (unknown) (unknown) Ordering (units (unkno wn) date) Provider: unknown) Almaz Blum P.A-C (unknown) (no (unknown) (unknown) PROCEDURE: XR (units ( unknown) date) PELVIS 1-2V unknown) (unknown) (no (unknown) (unknown) Patient: (units (unkno wn) date) Brendan Matthews unknown) MR#: [id number] (unknown) (no (unknown) (unknown) Procedure: XR (units ( unknown) date) pelvis 1-2V unknown) (unknown) (no (unknown) (unknown) Signed (units (unkno wn) date) unknown) (unknown) (no (unknown) (unknown) [place] (units (unkno wn) date) unknown) (unknown) (no (unknown) (unknown) Soft tissues: (units ( unknown) date) Overlying unknown) surgical retractors are present, along with other (unknown) (no (unknown) (unknown) TECHNIQUE: (units (unk nown) date) Intra-operative unknown) view of the pelvis and hip acquired. (unknown) (no (unknown) (unknown) XRay Report (units (un known) date) unknown) (unknown) (no (unknown) (unknown) changes. (units (unkno wn) date) unknown) (unknown) (no (unknown) (unknown) expected (units (unkno wn) date) positions. No unknown) fractures or suspicious bony lesions. (unknown) (no (unknown) (unknown) in (units (unkno wn) date) unknown) (unknown) (no (unknown) (unknown) intraoperative (units (unknown) date) unknown) Result panel 87 (unknown) (no date) (unknown) (unknown) (no value) (units (un known) unknown) (unknown) (no date) (unknown) (unknown) [id number] (units (unkn own) unknown) (unknown) (no date) (unknown) (unknown) 08/13/22 0739 (units (unknown) unknown) (unknown) (no date) (unknown) (unknown) Age/Sex: 56 / (units (unknown) M unknown) (unknown) (no date) (unknown) (unknown) Changes to (units (un known) H+P: No unknown) (unknown) (no date) (unknown) (unknown) : (units (unkn own) 1965 unknown) Acct:[id number] (unknown) (no date) (unknown) (unknown) Date of (units (unkn own) Service: unknown) 08/13/22 (unknown) (no date) (unknown) (unknown) History + (units (unk nown) Physical unknown) reviewed/Exam performed by Physician: Yes (unknown) (no date) (unknown) (unknown) Interval Note (units (unknown) unknown) (unknown) (no date) (unknown) (unknown) [facility] (units (unkn own) [place] [id number] unknown) [address] [place] [id number] (unknown) (no date) (unknown) (unknown) Negative (units (unkn own) unknown) (unknown) (no date) (unknown) (unknown) Negative (units (unkn own) unknown) (unknown) (no date) (unknown) (unknown) Patient: (units (unkn own) Brendan Matthews unknown) B MR#: [id number] (unknown) (no date) (unknown) (unknown) Pre-operative (units (unknown) Note unknown) (unknown) (no date) (unknown) (unknown) Provider: (units (unk nown) Natasha Talavera unknown) (unknown) (no date) (unknown) (unknown) Signed (units (unkn own) By:<Electronic unknown) ally signed by Natasha Talavera MD> Result panel 88 (unknown) (no (unknown) (unknown) (no value) (units (unk nown) date) unknown) (unknown) (no (unknown) (unknown) [id number] (units (unkno wn) date) unknown) (unknown) (no (unknown) (unknown) Age/Sex: 56 / M (units (unknown) date) unknown) (unknown) (no (unknown) (unknown) Circuit Design Engineer: Raleigh Hammer (units (unknown) date) Rafal unknown) (unknown) (no (unknown) (unknown) Blood products (units (unknown) date) transfused: none unknown) (unknown) (no (unknown) (unknown) Closure Type: (units ( unknown) date) primary unknown) (unknown) (no (unknown) (unknown) Complications: (units (unknown) date) none unknown) (unknown) (no (unknown) (unknown) Condition: stable (units (unknown) date) unknown) (unknown) (no (unknown) (unknown) : 1965 (units (unknown) date) Acct:[id number] unknown) (unknown) (no (unknown) (unknown) Date of Service: (units (unknown) date) 08/13/22 unknown) (unknown) (no (unknown) (unknown) Date of (units (unkno wn) date) procedure: unknown) 08/13/22 (unknown) (no (unknown) (unknown) Disposition: (units (u nknown) date) Acute Care unknown) (unknown) (no (unknown) (unknown) Estimated Blood (units (unknown) date) Loss (mL): 250 unknown) (unknown) (no (unknown) (unknown) Findings: (units (unkn own) date) unknown) (unknown) (no (unknown) (unknown) Indications: (units (u nknown) date) unknown) (unknown) (no (unknown) (unknown) [facility] (units (unknown) date) [address] unknown) [place] [address] (unknown) (no (unknown) (unknown) Left total hip (units (unknown) date) arthroplasty unknown) posterior approach (unknown) (no (unknown) (unknown) Operative (units (unkn own) date) Date/Time/Diagnose unknown) s (unknown) (no (unknown) (unknown) Operative Note (units (unknown) date) unknown) (unknown) (no (unknown) (unknown) Operative Notes (units (unknown) date) unknown) (unknown) (no (unknown) (unknown) Patient: (units (unkno wn) date) Brendan Matthews unknown) MR#: [id number] (unknown) (no (unknown) (unknown) Plan for (units (unkno wn) date) aftercare: unknown) (unknown) (no (unknown) (unknown) Post-op (units (unkno wn) date) diagnosis: same unknown) (unknown) (no (unknown) (unknown) Post-operative (units (unknown) date) unknown) (unknown) (no (unknown) (unknown) Pre-op diagnosis: (units (unknown) date) Left hip unknown) osteoarthritis (unknown) (no (unknown) (unknown) Procedure + (units (un known) date) Clinicians unknown) (unknown) (no (unknown) (unknown) Procedure in (units (u nknown) date) detail: unknown) (unknown) (no (unknown) (unknown) Procedure: (units (unk nown) date) unknown) (unknown) (no (unknown) (unknown) Prosthetic (units (unk nown) date) devices, grafts, unknown) tissues, transplants, or devices: (unknown) (no (unknown) (unknown) Provider: (units (unkn own) date) Natasha Talavera MD unknown) (unknown) (no (unknown) (unknown) Retractors were (units (unknown) date) placed around the unknown) femur. The canal was opened with a box (unknown) (no (unknown) (unknown) Retractors were (units (unknown) date) placed to expose unknown) the acetabulum. The labrum and central soft (unknown) (no (unknown) (unknown) Risks discussed (units (unknown) date) included, but were unknown) not limited to, failure to relieve pain, leg (unknown) (no (unknown) (unknown) Same procedure as (units (unknown) date) scheduled: Yes unknown) (unknown) (no (unknown) (unknown) Severe left hip (units (unknown) date) osteoarthritis, unknown) adequate stability (unknown) (no (unknown) (unknown) Signed By: (units (unk nown) date) unknown) (unknown) (no (unknown) (unknown) Angela (units (unknown) date) unknown) (unknown) (no (unknown) (unknown) Specimen(s): none (units (unknown) date) sent unknown) (unknown) (no (unknown) (unknown) Surgeon: Natasha Caceres (units (unknown) date) Il[place] unknown) (unknown) (no (unknown) (unknown) The acetabular (units (unknown) date) liner was impacted unknown) into position. The final stem was then (unknown) (no (unknown) (unknown) The broach was (units (unknown) date) placed in the unknown) canal. A trial head and neck were then placed and (unknown) (no (unknown) (unknown) The (units (unkno wn) date) capsulomuscular unknown) flap was then repaired to the greater trochanter though an (unknown) (no (unknown) (unknown) The hip was (units (unk nown) date) approached through unknown) an approximately 20 cm incision centered over the (unknown) (no (unknown) (unknown) The patient has (units (unknown) date) had progressively unknown) worsening left hip pain with radiographic (unknown) (no (unknown) (unknown) The patient was (units (unknown) date) seen in the unknown) pre-operative area, where the patient identified the (unknown) (no (unknown) (unknown) The patient will (units (unknown) date) be maintained on a unknown) standard total hip replacement protocol with (unknown) (no (unknown) (unknown) Time of (units (unkno wn) date) procedure: 07:55 unknown) (unknown) (no (unknown) (unknown) alternatives to (units (unknown) date) surgery were unknown) discussed with the patient prior to proceeding. (unknown) (no (unknown) (unknown) and , as (units ( unknown) date) well as the unknown) potential need for eventual revision of the (unknown) (no (unknown) (unknown) and draped (units (unk n) date) through sterile unknown) drapes. (unknown) (no (unknown) (unknown) appropriate (units (un known) date) anteversion unknown) guides. A trial neutral liner was placed. (unknown) (no (unknown) (unknown) awl hole using the (units (unknown) date) tag sutures. The unknown) short external rotators were repaired with a (unknown) (no (unknown) (unknown) barbed sutures (units (unknown) date) and SteriStrips. unknown) An Aquacel Ag dressing was applied and the (unknown) (no (unknown) (unknown) changes (units (unkno wn) date) consistent with unknown) arthritis. Non-operative management has failed and the (unknown) (no (unknown) (unknown) chili pepper (units (u nknown) date) broach was then unknown) used, followed by sequential broaching until there (unknown) (no (unknown) (unknown) cleared of all (units (unknown) date) material and the unknown) hip relocated one final time. (unknown) (no (unknown) (unknown) cutting osteotome, (units (unknown) date) followed by a T unknown) handled reamer and a lateralizing reamer. The (unknown) (no (unknown) (unknown) degrees flexion, (units (unknown) date) internal rotation unknown) to [] was possible before dislocation. This (unknown) (no (unknown) (unknown) fascia soila was (units (unknown) date) closed with unknown) Vicryl. The subcutaneous layer was closed with (unknown) (no (unknown) (unknown) film confirmed (units (unknown) date) the component unknown) position and no evidence of fracture. The patient (unknown) (no (unknown) (unknown) greater (units (unkno wn) date) trochanter and unknown) curving gently posteriorly as it went proximally. This (unknown) (no (unknown) (unknown) impacted into the (units (unknown) date) prepared femoral unknown) canal. A brief Betadine soak was performed (unknown) (no (unknown) (unknown) increments, then (units (unknown) date) 1 mm increments unknown) until good bite was obtained with an odd sized (unknown) (no (unknown) (unknown) left hip as the (units (unknown) date) operative site and unknown) this was marked with my initials. The patient (unknown) (no (unknown) (unknown) length (units (unkno wn) date) discrepancy, unknown) dislocation, stiffness, infection, nerve damage, deep venous (unknown) (no (unknown) (unknown) neck osteotomy (units (unknown) date) performed unknown) approximately 15 mm above the lesser trochanter. (unknown) (no (unknown) (unknown) nonabsorbable (units ( unknown) date) suture. A deep unknown) drain was placed and brought out anteriorly. The (unknown) (no (unknown) (unknown) patient has (units (un known) date) requested total unknown) hip replacement. The risks, benefits and (unknown) (no (unknown) (unknown) patient was taken (units (unknown) date) to recovery having unknown) tolerated the procedure well. (unknown) (no (unknown) (unknown) patient will be (units (unknown) date) discharged home unknown) when safe for the home environment. (unknown) (no (unknown) (unknown) placed on the (units ( unknown) date) operative table in unknown) the right lateral decubitus position after (unknown) (no (unknown) (unknown) prepared from the (units (unknown) date) ankle to the iliac unknown) crest with ChloroPrep in the usual fashion (unknown) (no (unknown) (unknown) prosthetic. (units (un known) date) unknown) (unknown) (no (unknown) (unknown) range of motion (units (unknown) date) with 45 degrees unknown) internal rotation without dislocation. At 90 (unknown) (no (unknown) (unknown) reamer. The cup 1 (units (unknown) date) mm larger than the unknown) last reamer was then inserted using the (unknown) (no (unknown) (unknown) receive Aspirin (units (unknown) date) and sequential unknown) compression devices for DVT prophylaxis. The (unknown) (no (unknown) (unknown) received (units (unkno wn) date) pre-operative unknown) antibiotics and was taken to the operating room and (unknown) (no (unknown) (unknown) saline. Finally (units (unknown) date) the femoral head unknown) was impacted onto the stem. The acetabulum was (unknown) (no (unknown) (unknown) satisfactory (units (u nknown) date) anesthesia. A full unknown) time out was performed. The left leg was (unknown) (no (unknown) (unknown) self retaining (units (unknown) date) retractor. The unknown) trochanteric bursa was excised with care being (unknown) (no (unknown) (unknown) taken to avoid (units (unknown) date) the sciatic nerve, unknown) which was identified and protected throughout (unknown) (no (unknown) (unknown) the case. The (units ( unknown) date) short external unknown) rotators were incised and the capsulomuscular flap (unknown) (no (unknown) (unknown) the hip relocated (units (unknown) date) and checked for unknown) leg length and stability. An intraoperative (unknown) (no (unknown) (unknown) thrombosis, (units (un known) date) pulmonary unknown) embolism, stroke, coma, heart attack, permanent paralysis (unknown) (no (unknown) (unknown) tissues were (units (u nknown) date) removed. Reaming unknown) was performed initially going up in 2 mm (unknown) (no (unknown) (unknown) trials were (units (un known) date) removed. unknown) (unknown) (no (unknown) (unknown) was carried (units (un known) date) sharply to the unknown) fascia soila, which was divided and retracted with a (unknown) (no (unknown) (unknown) was felt to be (units (unknown) date) satisfactory and unknown) the appropriate components were opened, and the (unknown) (no (unknown) (unknown) was good (units (unkno wn) date) stability of the unknown) broach in the femur. (unknown) (no (unknown) (unknown) was raised and (units (unknown) date) tagged for later unknown) repair. The hip was dislocated, and a femoral (unknown) (no (unknown) (unknown) was stable in the (units (unknown) date) position of sleep, unknown) of squatting, and could be put through a (unknown) (no (unknown) (unknown) weight bearing as (units (unknown) date) tolerated and unknown) posterior hip precautions. The patient will (unknown) (no (unknown) (unknown) while trialing (units ( unknown) date) with head options. unknown) The hip was meticulously irrigated with normal Result panel 89 (unknown) (no (unknown) (unknown) (no value) (units (unk nown) date) unknown) (unknown) (no (unknown) (unknown) (1) Hip (units (unkno wn) date) arthritis: unknown) (unknown) (no (unknown) (unknown) (Tylenol Extra (units (unknown) date) Strength) Pain, unknown) Moderate (unknown) (no (unknown) (unknown) (past 8 hours): (units (unknown) date) unknown) (unknown) (no (unknown) (unknown) [id number] (units (unkno wn) date) unknown) (unknown) (no (unknown) (unknown) 08/13/22 0748 (units ( unknown) date) unknown) (unknown) (no (unknown) (unknown) 08/13/22 (units (unkno wn) date) unknown) (unknown) (no (unknown) (unknown) 07:02 (units (unkno wn) date) unknown) (unknown) (no (unknown) (unknown) 07:24 (units (unkno wn) date) unknown) (unknown) (no (unknown) (unknown) Age/Sex: 56 / M (units (unknown) date) unknown) (unknown) (no (unknown) (unknown) Allergies (units (unkn own) date) unknown) (unknown) (no (unknown) (unknown) Allergy/AdvReac (units (unknown) date) Type Severity unknown) Reaction Status Date / Time (unknown) (no (unknown) (unknown) Assessment + (units (u nknown) date) Plan unknown) (unknown) (no (unknown) (unknown) Assessment and (units (unknown) date) plan unknown) (unknown) (no (unknown) (unknown) Blood Pressure (units (unknown) date) 169/85 H unknown) (unknown) (no (unknown) (unknown) Borderline (units (unk nown) date) hypertension unknown) (unknown) (no (unknown) (unknown) COVID-19 virus (units (unknown) date) infection (2020) unknown) (unknown) (no (unknown) (unknown) Cataract (units (unkno wn) date) unknown) (unknown) (no (unknown) (unknown) Chief complaint: (units (unknown) date) Left CARO *OPB* unknown) (unknown) (no (unknown) (unknown) : 1965 (units (unknown) date) Acct:[id number] unknown) (unknown) (no (unknown) (unknown) Date Patient (units (u nknown) date) Seen: 08/13/22 unknown) (unknown) (no (unknown) (unknown) Date of Service: (units (unknown) date) 08/13/22 unknown) (unknown) (no (unknown) (unknown) Did have a (units (unk nown) date) significant cyst unknown) on his right hip. Options risks benefits and (unknown) (no (unknown) (unknown) Diverticulitis (units (unknown) date) () unknown) (unknown) (no (unknown) (unknown) Elevated WBCs (units ( unknown) date) () unknown) (unknown) (no (unknown) (unknown) Exam Narrative: (units (unknown) date) unknown) (unknown) (no (unknown) (unknown) Exam (units (unkno wn) date) unknown) (unknown) (no (unknown) (unknown) HEENT is benign (units (unknown) date) lungs are clear unknown) cor regular rate and rhythm abdomen is slightly (unknown) (no (unknown) (unknown) HLD (units (unkno wn) date) (hyperlipidemia) unknown) (unknown) (no (unknown) (unknown) He notes ongoing (units (unknown) date) constant left hip unknown) pain. Has a history of a right total hip (unknown) (no (unknown) (unknown) History + (units (unkn own) date) Physical Report unknown) (unknown) (no (unknown) (unknown) History of (units (unk nown) date) Present Illness unknown) (unknown) (no (unknown) (unknown) History of (units (unk nown) date) colonoscopy unknown) (unknown) (no (unknown) (unknown) History of liver (units (unknown) date) biopsy () unknown) (unknown) (no (unknown) (unknown) 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 (03/31/19) (unknown) (no (unknown) (unknown) History (units (unkno wn) date) unknown) (unknown) (no (unknown) (unknown) Home Medications (units (unknown) date) and Allergies unknown) (unknown) (no (unknown) (unknown) Home Medications (units (unknown) date) unknown) (unknown) (no (unknown) (unknown) [facility] (units (unknown) date) [address] unknown) [place] [address] (unknown) (no (unknown) (unknown) Kidney stones (units ( unknown) date) unknown) (unknown) (no (unknown) (unknown) Laboratory (units (unk nown) date) Results - last 24 unknown) hr (unknown) (no (unknown) (unknown) Labs (units (unkno wn) date) unknown) (unknown) (no (unknown) (unknown) Labs: (units (unkno wn) date) unknown) (unknown) (no (unknown) (unknown) Medical History (units (unknown) date) (Reviewed unknown) 08/13/22 @ 07:46 by Natasha Talavera MD) (unknown) (no (unknown) (unknown) Medication (units (unk nown) date) Instructions unknown) Recorded Confirmed Type (unknown) (no (unknown) (unknown) Meds (units (unkno wn) date) unknown) (unknown) (no (unknown) (unknown) Melanoma (-2017) (units (unknown) date) unknown) (unknown) (no (unknown) (unknown) Narrative (units (unkn own) date) unknown) (unknown) (no (unknown) (unknown) Narrative: (units (unk nown) date) unknown) (unknown) (no (unknown) (unknown) No recent change (units (unknown) date) feeling well unknown) other than hip pain (unknown) (no (unknown) (unknown) Objective (units (unkn own) date) unknown) (unknown) (no (unknown) (unknown) Osteoarthritis (units (unknown) date) unknown) (unknown) (no (unknown) (unknown) Oxygen Delivery (units (unknown) date) Method Room Air unknown) (unknown) (no (unknown) (unknown) PFSH (units (unkno wn) date) unknown) (unknown) (no (unknown) (unknown) Patient: (units (unkno wn) date) Brendan Matthews unknown) MR#: [id number] (unknown) (no (unknown) (unknown) Plan (units (unkno wn) date) unknown) (unknown) (no (unknown) (unknown) Pneumonia (units (unkn own) date) unknown) (unknown) (no (unknown) (unknown) Provider: (units (unkn own) date) Natasha Talavera MD unknown) (unknown) (no (unknown) (unknown) Pulse Oximetry (units (unknown) date) 97 unknown) (unknown) (no (unknown) (unknown) Pulse Rate 62 (units ( unknown) date) unknown) (unknown) (no (unknown) (unknown) Recommended left (units (unknown) date) total hip unknown) arthroplasty. The options risks benefits and (unknown) (no (unknown) (unknown) Respiratory Rate (units (unknown) date) 16 unknown) (unknown) (no (unknown) (unknown) Review of (units (unkn own) date) Systems unknown) (unknown) (no (unknown) (unknown) SARS-CoV-2 (PCR) (units (unknown) date) Negative unknown) (unknown) (no (unknown) (unknown) Signed (units (unkno wn) date) By:<Electronicall unknown) y signed by Natasha Talavera MD> (unknown) (no (unknown) (unknown) Smoking Status: (units (unknown) date) Never smoker unknown) (unknown) (no (unknown) (unknown) Social History (units (unknown) date) (Reviewed unknown) 08/13/22 @ 07:46 by Natasha Talavera MD) (unknown) (no (unknown) (unknown) Status: Acute (units ( unknown) date) unknown) (unknown) (no (unknown) (unknown) Surgical History (units (unknown) date) (Reviewed unknown) 08/13/22 @ 07:46 by Natasha Talavera MD) (unknown) (no (unknown) (unknown) Temperature 97.7 (units (unknown) date) F unknown) (unknown) (no (unknown) (unknown) Time Patient (units (u nknown) date) Seen: 07:45 unknown) (unknown) (no (unknown) (unknown) Tingling of both (units (unknown) date) feet unknown) (unknown) (no (unknown) (unknown) Vital Signs (units (un known) date) unknown) (unknown) (no (unknown) (unknown) acceptable (units (unk nown) date) alignment no unknown) loosening (unknown) (no (unknown) (unknown) acetaminophen (units ( unknown) date) 500 mg tablet 500 unknown) mg PO Q4H PRN Breakthrough 03/31/19 08/13/22 (unknown) (no (unknown) (unknown) alcohol Allergy (units (unknown) date) Severe Alcohol in unknown) Verified 08/13/22 06:44 (unknown) (no (unknown) (unknown) alcohol intake: (units (unknown) date) never unknown) (unknown) (no (unknown) (unknown) arthroplasty in (units (unknown) date) 2019. His health unknown) has otherwise been stable. Please see (unknown) (no (unknown) (unknown) calves are soft (units (unknown) date) bilaterally is unknown) neurologically intact distally (unknown) (no (unknown) (unknown) celecoxib 200 mg (units (unknown) date) capsule 200 mg PO unknown) DAILY 07/10/22 08/13/22 History (unknown) (no (unknown) (unknown) complications (units ( unknown) date) are reviewed. He unknown) did well after right total hip arthroplasty. (unknown) (no (unknown) (unknown) complications (units ( unknown) date) discussed in unknown) detail. Consents and wants to proceed with a left (unknown) (no (unknown) (unknown) household (units (unkn own) date) members: spouse unknown) (unknown) (no (unknown) (unknown) obese but benign (units (unknown) date) his left hip unknown) shows restricted range of motion is skin is intact (unknown) (no (unknown) (unknown) previous H and (units (unknown) date) P. unknown) (unknown) (no (unknown) (unknown) products-rash, (units (unknown) date) unknown) (unknown) (no (unknown) (unknown) rosuvastatin 5 (units (unknown) date) mg tablet 5 mg PO unknown) BEDTIME 07/10/22 08/13/22 History (unknown) (no (unknown) (unknown) swelling (units (unkno wn) date) unknown) (unknown) (no (unknown) (unknown) throat (units (unkno wn) date) unknown) (unknown) (no (unknown) (unknown) total hip (units (unkn own) date) arthroplasty. unknown) (unknown) (no (unknown) (unknown) x-rays show (units (un known) date) severe left hip unknown) osteoarthritis, right total hip arthroplasty Result panel 90 (unknown) (no (unknown) (unknown) (no value) (units (unk nown) date) unknown) (unknown) (no (unknown) (unknown) [id number] (units (unkno wn) date) unknown) (unknown) (no (unknown) (unknown) 08/13/22 (units (unkno wn) date) unknown) (unknown) (no (unknown) (unknown) [address] [place] [address] (units (unknown) date) unknown) (unknown) (no (unknown) (unknown) Accession (units (unkn own) date) Number: unknown) [id number] (unknown) (no (unknown) (unknown) Age/Sex: 56 / M (units (unknown) date) Date of Service: unknown) (unknown) (no (unknown) (unknown) [place], [place] (units ( unknown) date) [id number] unknown) (unknown) (no (unknown) (unknown) Approved by: (units (u nknown) date) Brendan Dimas M.D. unknown) on 08/13/2022 at 13:31 (unknown) (no (unknown) (unknown) Bones: Patient (units (unknown) date) is status post unknown) bilateral hip arthroplasty, with hardware (unknown) (no (unknown) (unknown) COMPARISON: (units (un known) date) [facility], unknown) CR, XR HIP W PEL IF DONE RT 2V, 03/31/2019, 15:56. (unknown) (no (unknown) (unknown) : 1965 (units (unknown) date) Acct:[id number] unknown) (unknown) (no (unknown) (unknown) Dictated by: (units (u nknown) date) Brendan Dimas M.D. unknown) on 08/13/2022 at 13:31 (unknown) (no (unknown) (unknown) FINDINGS: (units (unkn own) date) unknown) (unknown) (no (unknown) (unknown) IMPRESSION: (units (un known) date) Interval unknown) placement of a left total hip arthroplasty, which appears (unknown) (no (unknown) (unknown) INDICATIONS: (units (u nknown) date) POST LEFT HIP unknown) (unknown) (no (unknown) (unknown) [facility] (units (unknown) date) unknown) (unknown) (no (unknown) (unknown) Loc: 203-1 (units ( unknown) date) unknown) (unknown) (no (unknown) (unknown) Ordering (units (unkno wn) date) Provider: unknown) Natasha Talavera MD (unknown) (no (unknown) (unknown) PROCEDURE: XR (units ( unknown) date) HIP W PEL IF DONE unknown) LT 2V (unknown) (no (unknown) (unknown) Patient: (units (unkno wn) date) Brendan Matthews unknown) MR#: [id number] (unknown) (no (unknown) (unknown) Procedure: XR (units ( unknown) date) hip w pel if done unknown) LT 2V (unknown) (no (unknown) (unknown) Signed (units (unkno wn) date) unknown) (unknown) (no (unknown) (unknown) Soft tissues: (units ( unknown) date) Overlying unknown) postoperative changes are noted. No suspicious soft (unknown) (no (unknown) (unknown) TECHNIQUE: AP (units ( unknown) date) pelvis and unknown) lateral view of the left hip acquired. (unknown) (no (unknown) (unknown) XRay Report (units (un known) date) unknown) (unknown) (no (unknown) (unknown) appear intact. (units (unknown) date) unknown) (unknown) (no (unknown) (unknown) components in (units ( unknown) date) unknown) (unknown) (no (unknown) (unknown) densities. (units (unk nown) date) unknown) (unknown) (no (unknown) (unknown) expected (units (unkno wn) date) positions. The unknown) hip joint appears congruent. The visualized bony (unknown) (no (unknown) (unknown) normal. (units (unkno wn) date) unknown) (unknown) (no (unknown) (unknown) structures (units (unk nown) date) unknown) (unknown) (no (unknown) (unknown) tissue (units (unkno wn) date) unknown) Result panel 91 (unknown) (no (unknown) (unknown) (no value) (units (unk nown) date) unknown) (unknown) (no (unknown) (unknown) [id number] (units (unkno wn) date) unknown) (unknown) (no (unknown) (unknown) Age/Sex: 56 / M (units (unknown) date) unknown) (unknown) (no (unknown) (unknown) Anesthesia Type: (units (unknown) date) General and Spinal unknown) (unknown) (no (unknown) (unknown) Circuit Design Engineer: [place] W (units (unknown) date) Rafal unknown) (unknown) (no (unknown) (unknown) Blood products (units (unknown) date) transfused: none unknown) (unknown) (no (unknown) (unknown) Closure Type: (units ( unknown) date) primary unknown) (unknown) (no (unknown) (unknown) Complications: (units (unknown) date) none unknown) (unknown) (no (unknown) (unknown) Condition: stable (units (unknown) date) unknown) (unknown) (no (unknown) (unknown) : 1965 (units (unknown) date) Acct:[id number] unknown) (unknown) (no (unknown) (unknown) Date of Service: (units (unknown) date) 08/13/22 unknown) (unknown) (no (unknown) (unknown) Date of (units (unkno wn) date) procedure: unknown) 08/13/22 (unknown) (no (unknown) (unknown) Disposition: (units (u nknown) date) Acute Care unknown) (unknown) (no (unknown) (unknown) Estimated Blood (units (unknown) date) Loss (mL): 250 unknown) (unknown) (no (unknown) (unknown) Findings: (units (unkn own) date) unknown) (unknown) (no (unknown) (unknown) Indications: (units (u nknown) date) unknown) (unknown) (no (unknown) (unknown) [facility] (units (unknown) date) [address] unknown) [place] [address] (unknown) (no (unknown) (unknown) Left total hip (units (unknown) date) arthroplasty unknown) posterior approach (unknown) (no (unknown) (unknown) Operative (units (unkn own) date) Date/Time/Diagnose unknown) s (unknown) (no (unknown) (unknown) Operative Note (units (unknown) date) unknown) (unknown) (no (unknown) (unknown) Operative Notes (units (unknown) date) unknown) (unknown) (no (unknown) (unknown) Patient: (units (unkno wn) date) Brendan Matthews unknown) MR#: [id number] (unknown) (no (unknown) (unknown) Plan for (units (unkno wn) date) aftercare: unknown) (unknown) (no (unknown) (unknown) Post-op (units (unkno wn) date) diagnosis: same unknown) (unknown) (no (unknown) (unknown) Post-operative (units (unknown) date) unknown) (unknown) (no (unknown) (unknown) Pre-op diagnosis: (units (unknown) date) Left hip unknown) osteoarthritis (unknown) (no (unknown) (unknown) Procedure + (units (un known) date) Clinicians unknown) (unknown) (no (unknown) (unknown) Procedure in (units (u nknown) date) detail: unknown) (unknown) (no (unknown) (unknown) Procedure: (units (unk nown) date) unknown) (unknown) (no (unknown) (unknown) Prosthetic (units (unk nown) date) devices, grafts, unknown) tissues, transplants, or devices: (unknown) (no (unknown) (unknown) Provider: (units (unkn own) date) Natasha Talavera MD unknown) (unknown) (no (unknown) (unknown) Retractors were (units (unknown) date) placed around the unknown) femur. The canal was opened with a box (unknown) (no (unknown) (unknown) Retractors were (units (unknown) date) placed to expose unknown) the acetabulum. The labrum and central soft (unknown) (no (unknown) (unknown) Risks discussed (units (unknown) date) included, but were unknown) not limited to, failure to relieve pain, leg (unknown) (no (unknown) (unknown) Same procedure as (units (unknown) date) scheduled: Yes unknown) (unknown) (no (unknown) (unknown) Severe left hip (units (unknown) date) osteoarthritis, unknown) adequate stability (unknown) (no (unknown) (unknown) Signed By: (units (unk nown) date) unknown) (unknown) (no (unknown) (unknown) Angela (units (unknown) date) size 6 standard unknown) offset anthology, 56 mm R3 cup, (unknown) (no (unknown) (unknown) Specimen(s): none (units (unknown) date) sent unknown) (unknown) (no (unknown) (unknown) Surgeon: Natasha Caceres (units (unknown) date) Ilan unknown) (unknown) (no (unknown) (unknown) The acetabular (units (unknown) date) liner was impacted unknown) into position. The final stem was then (unknown) (no (unknown) (unknown) The broach was (units (unknown) date) placed in the unknown) canal. A trial head and neck were then placed and (unknown) (no (unknown) (unknown) The (units (unkno wn) date) capsulomuscular unknown) flap was then repaired to the greater trochanter though an (unknown) (no (unknown) (unknown) The hip was (units (unk nown) date) approached through unknown) an approximately 20 cm incision centered over the (unknown) (no (unknown) (unknown) The patient has (units (unknown) date) had progressively unknown) worsening left hip pain with radiographic (unknown) (no (unknown) (unknown) The patient was (units (unknown) date) seen in the unknown) pre-operative area, where the patient identified the (unknown) (no (unknown) (unknown) The patient will (units (unknown) date) be maintained on a unknown) standard total hip replacement protocol with (unknown) (no (unknown) (unknown) Time of (units (unkno wn) date) procedure: 07:55 unknown) (unknown) (no (unknown) (unknown) alternatives to (units (unknown) date) surgery were unknown) discussed with the patient prior to proceeding. (unknown) (no (unknown) (unknown) and , as (units ( unknown) date) well as the unknown) potential need for eventual revision of the (unknown) (no (unknown) (unknown) and draped (units (unk n) date) through sterile unknown) drapes. (unknown) (no (unknown) (unknown) appropriate (units (un known) date) anteversion unknown) guides. A trial neutral liner was placed. (unknown) (no (unknown) (unknown) awl hole using the (units (unknown) date) tag sutures. The unknown) short external rotators were repaired with a (unknown) (no (unknown) (unknown) barbed sutures (units (unknown) date) and SteriStrips. unknown) An Aquacel Ag dressing was applied and the (unknown) (no (unknown) (unknown) changes (units (unkno wn) date) consistent with unknown) arthritis. Non-operative management has failed and the (unknown) (no (unknown) (unknown) chili pepper (units (u nknown) date) broach was then unknown) used, followed by sequential broaching until there (unknown) (no (unknown) (unknown) cleared of all (units (unknown) date) material and the unknown) hip relocated one final time. (unknown) (no (unknown) (unknown) cutting osteotome, (units (unknown) date) followed by a T unknown) handled reamer and a lateralizing reamer. The (unknown) (no (unknown) (unknown) degrees flexion, (units (unknown) date) internal rotation unknown) to [] was possible before dislocation. This (unknown) (no (unknown) (unknown) fascia soila was (units (unknown) date) closed with unknown) Vicryl. The subcutaneous layer was closed with (unknown) (no (unknown) (unknown) film confirmed (units (unknown) date) the component unknown) position and no evidence of fracture. The patient (unknown) (no (unknown) (unknown) greater (units (unkno wn) date) trochanter and unknown) curving gently posteriorly as it went proximally. This (unknown) (no (unknown) (unknown) impacted into the (units (unknown) date) prepared femoral unknown) canal. A brief Betadine soak was performed (unknown) (no (unknown) (unknown) increments, then (units (unknown) date) 1 mm increments unknown) until good bite was obtained with an odd sized (unknown) (no (unknown) (unknown) left hip as the (units (unknown) date) operative site and unknown) this was marked with my initials. The patient (unknown) (no (unknown) (unknown) length (units (unkno wn) date) discrepancy, unknown) dislocation, stiffness, infection, nerve damage, deep venous (unknown) (no (unknown) (unknown) neck osteotomy (units (unknown) date) performed unknown) approximately 15 mm above the lesser trochanter. (unknown) (no (unknown) (unknown) nonabsorbable (units ( unknown) date) suture. A deep unknown) drain was placed and brought out anteriorly. The (unknown) (no (unknown) (unknown) patient has (units (un known) date) requested total unknown) hip replacement. The risks, benefits and (unknown) (no (unknown) (unknown) patient was taken (units (unknown) date) to recovery having unknown) tolerated the procedure well. (unknown) (no (unknown) (unknown) patient will be (units (unknown) date) discharged home unknown) when safe for the home environment. (unknown) (no (unknown) (unknown) placed on the (units ( unknown) date) operative table in unknown) the right lateral decubitus position after (unknown) (no (unknown) (unknown) prepared from the (units (unknown) date) ankle to the iliac unknown) crest with ChloroPrep in the usual fashion (unknown) (no (unknown) (unknown) prosthetic. (units (un known) date) unknown) (unknown) (no (unknown) (unknown) range of motion (units (unknown) date) with 45 degrees unknown) internal rotation without dislocation. At 90 (unknown) (no (unknown) (unknown) reamer. The cup 1 (units (unknown) date) mm larger than the unknown) last reamer was then inserted using the (unknown) (no (unknown) (unknown) receive Aspirin (units (unknown) date) and sequential unknown) compression devices for DVT prophylaxis. The (unknown) (no (unknown) (unknown) received (units (unkno wn) date) pre-operative unknown) antibiotics and was taken to the operating room and (unknown) (no (unknown) (unknown) saline. Finally (units (unknown) date) the femoral head unknown) was impacted onto the stem. The acetabulum was (unknown) (no (unknown) (unknown) satisfactory (units (u nknown) date) anesthesia. A full unknown) time out was performed. The left leg was (unknown) (no (unknown) (unknown) self retaining (units (unknown) date) retractor. The unknown) trochanteric bursa was excised with care being (unknown) (no (unknown) (unknown) taken to avoid (units (unknown) date) the sciatic nerve, unknown) which was identified and protected throughout (unknown) (no (unknown) (unknown) the case. The (units ( unknown) date) short external unknown) rotators were incised and the capsulomuscular flap (unknown) (no (unknown) (unknown) the hip relocated (units (unknown) date) and checked for unknown) leg length and stability. An intraoperative (unknown) (no (unknown) (unknown) thrombosis, (units (un known) date) pulmonary unknown) embolism, stroke, coma, heart attack, permanent paralysis (unknown) (no (unknown) (unknown) tissues were (units (u nknown) date) removed. Reaming unknown) was performed initially going up in 2 mm (unknown) (no (unknown) (unknown) trials were (units (un known) date) removed. unknown) (unknown) (no (unknown) (unknown) was carried (units (un known) date) sharply to the unknown) fascia soila, which was divided and retracted with a (unknown) (no (unknown) (unknown) was felt to be (units (unknown) date) satisfactory and unknown) the appropriate components were opened, and the (unknown) (no (unknown) (unknown) was good (units (unkno wn) date) stability of the unknown) broach in the femur. (unknown) (no (unknown) (unknown) was raised and (units (unknown) date) tagged for later unknown) repair. The hip was dislocated, and a femoral (unknown) (no (unknown) (unknown) was stable in the (units (unknown) date) position of sleep, unknown) of squatting, and could be put through a (unknown) (no (unknown) (unknown) weight bearing as (units (unknown) date) tolerated and unknown) posterior hip precautions. The patient will (unknown) (no (unknown) (unknown) while trialing (units ( unknown) date) with head options. unknown) The hip was meticulously irrigated with normal Result panel 92 (unknown) (no (unknown) (unknown) (no value) (units (unk nown) date) unknown) (unknown) (no (unknown) (unknown) [id number] (units (unkno wn) date) unknown) (unknown) (no (unknown) (unknown) Age/Sex: 56 / M (units (unknown) date) unknown) (unknown) (no (unknown) (unknown) Anesthesia Type: (units (unknown) date) General and Spinal unknown) (unknown) (no (unknown) (unknown) Circuit Design Engineer: Raleigh Hammer (units (unknown) date) Rafal unknown) (unknown) (no (unknown) (unknown) Blood products (units (unknown) date) transfused: none unknown) (unknown) (no (unknown) (unknown) Closure Type: (units ( unknown) date) primary unknown) (unknown) (no (unknown) (unknown) Complications: (units (unknown) date) none unknown) (unknown) (no (unknown) (unknown) Condition: stable (units (unknown) date) unknown) (unknown) (no (unknown) (unknown) : 1965 (units (unknown) date) Acct:[id number] unknown) (unknown) (no (unknown) (unknown) Date of Service: (units (unknown) date) 08/13/22 unknown) (unknown) (no (unknown) (unknown) Date of (units (unkno wn) date) procedure: unknown) 08/13/22 (unknown) (no (unknown) (unknown) Disposition: (units (u nknown) date) Acute Care unknown) (unknown) (no (unknown) (unknown) Estimated Blood (units (unknown) date) Loss (mL): 250 unknown) (unknown) (no (unknown) (unknown) Findings: (units (unkn own) date) unknown) (unknown) (no (unknown) (unknown) Indications: (units (u nknown) date) unknown) (unknown) (no (unknown) (unknown) [facility] (units (unknown) date) [address] unknown) [place] [address] (unknown) (no (unknown) (unknown) Left total hip (units (unknown) date) arthroplasty unknown) posterior approach (unknown) (no (unknown) (unknown) Operative (units (unkn own) date) Date/Time/Diagnose unknown) s (unknown) (no (unknown) (unknown) Operative Note (units (unknown) date) unknown) (unknown) (no (unknown) (unknown) Operative Notes (units (unknown) date) unknown) (unknown) (no (unknown) (unknown) Patient: (units (unkno wn) date) Brendan Matthews unknown) MR#: [id number] (unknown) (no (unknown) (unknown) Plan for (units (unkno wn) date) aftercare: unknown) (unknown) (no (unknown) (unknown) Post-op (units (unkno wn) date) diagnosis: same unknown) (unknown) (no (unknown) (unknown) Post-operative (units (unknown) date) unknown) (unknown) (no (unknown) (unknown) Pre-op diagnosis: (units (unknown) date) Left hip unknown) osteoarthritis (unknown) (no (unknown) (unknown) Procedure + (units (un known) date) Clinicians unknown) (unknown) (no (unknown) (unknown) Procedure in (units (u nknown) date) detail: unknown) (unknown) (no (unknown) (unknown) Procedure: (units (unk nown) date) unknown) (unknown) (no (unknown) (unknown) Prosthetic (units (unk nown) date) devices, grafts, unknown) tissues, transplants, or devices: (unknown) (no (unknown) (unknown) Provider: (units (unkn own) date) Natasha Talavera MD unknown) (unknown) (no (unknown) (unknown) Retractors were (units (unknown) date) placed around the unknown) femur. The canal was opened with a box (unknown) (no (unknown) (unknown) Retractors were (units (unknown) date) placed to expose unknown) the acetabulum. The labrum and central soft (unknown) (no (unknown) (unknown) Risks discussed (units (unknown) date) included, but were unknown) not limited to, failure to relieve pain, leg (unknown) (no (unknown) (unknown) Same procedure as (units (unknown) date) scheduled: Yes unknown) (unknown) (no (unknown) (unknown) Severe left hip (units (unknown) date) osteoarthritis, unknown) adequate stability (unknown) (no (unknown) (unknown) Signed By: (units (unk nown) date) unknown) (unknown) (no (unknown) (unknown) Angela (units (unknown) date) size 6 standard unknown) offset anthology, 56 mm R3 cup, (unknown) (no (unknown) (unknown) Specimen(s): none (units (unknown) date) sent unknown) (unknown) (no (unknown) (unknown) Surgeon: Natasha Caceres (units (unknown) date) Ilan unknown) (unknown) (no (unknown) (unknown) The acetabular (units (unknown) date) liner was impacted unknown) into position. The final stem was then (unknown) (no (unknown) (unknown) The broach was (units (unknown) date) placed in the unknown) canal. A trial head and neck were then placed and (unknown) (no (unknown) (unknown) The (units (unkno wn) date) capsulomuscular unknown) flap was then repaired to the greater trochanter though an (unknown) (no (unknown) (unknown) The hip was (units (unk n) date) approached through unknown) an approximately 20 cm incision centered over the (unknown) (no (unknown) (unknown) The patient has (units (unknown) date) had progressively unknown) worsening left hip pain with radiographic (unknown) (no (unknown) (unknown) The patient was (units (unknown) date) seen in the unknown) pre-operative area, where the patient identified the (unknown) (no (unknown) (unknown) The patient will (units (unknown) date) be maintained on a unknown) standard total hip replacement protocol with (unknown) (no (unknown) (unknown) Time of (units (unkno wn) date) procedure: 07:55 unknown) (unknown) (no (unknown) (unknown) alternatives to (units (unknown) date) surgery were unknown) discussed with the patient prior to proceeding. (unknown) (no (unknown) (unknown) and , as (units ( unknown) date) well as the unknown) potential need for eventual revision of the (unknown) (no (unknown) (unknown) and draped (units (unk n) date) through sterile unknown) drapes. (unknown) (no (unknown) (unknown) appropriate (units (un known) date) anteversion unknown) guides. A trial neutral liner was placed. (unknown) (no (unknown) (unknown) awl hole using the (units (unknown) date) tag sutures. The unknown) short external rotators were repaired with a (unknown) (no (unknown) (unknown) barbed sutures (units (unknown) date) and SteriStrips. unknown) An Aquacel Ag dressing was applied and the (unknown) (no (unknown) (unknown) changes (units (unkno wn) date) consistent with unknown) arthritis. Non-operative management has failed and the (unknown) (no (unknown) (unknown) chili pepper (units (u nknown) date) broach was then unknown) used, followed by sequential broaching until there (unknown) (no (unknown) (unknown) cleared of all (units (unknown) date) material and the unknown) hip relocated one final time. (unknown) (no (unknown) (unknown) cutting osteotome, (units (unknown) date) followed by a T unknown) handled reamer and a lateralizing reamer. The (unknown) (no (unknown) (unknown) degrees flexion, (units (unknown) date) internal rotation unknown) to [] was possible before dislocation. This (unknown) (no (unknown) (unknown) fascia soila was (units (unknown) date) closed with unknown) Vicryl. The subcutaneous layer was closed with (unknown) (no (unknown) (unknown) film confirmed (units (unknown) date) the component unknown) position and no evidence of fracture. The patient (unknown) (no (unknown) (unknown) greater (units (unkno wn) date) trochanter and unknown) curving gently posteriorly as it went proximally. This (unknown) (no (unknown) (unknown) impacted into the (units (unknown) date) prepared femoral unknown) canal. A brief Betadine soak was performed (unknown) (no (unknown) (unknown) increments, then (units (unknown) date) 1 mm increments unknown) until good bite was obtained with an odd sized (unknown) (no (unknown) (unknown) left hip as the (units (unknown) date) operative site and unknown) this was marked with my initials. The patient (unknown) (no (unknown) (unknown) length (units (unkno wn) date) discrepancy, unknown) dislocation, stiffness, infection, nerve damage, deep venous (unknown) (no (unknown) (unknown) neck osteotomy (units (unknown) date) performed unknown) approximately 15 mm above the lesser trochanter. (unknown) (no (unknown) (unknown) nonabsorbable (units ( unknown) date) suture. A deep unknown) drain was placed and brought out anteriorly. The (unknown) (no (unknown) (unknown) patient has (units (un known) date) requested total unknown) hip replacement. The risks, benefits and (unknown) (no (unknown) (unknown) patient was taken (units (unknown) date) to recovery having unknown) tolerated the procedure well. (unknown) (no (unknown) (unknown) patient will be (units (unknown) date) discharged home unknown) when safe for the home environment. (unknown) (no (unknown) (unknown) placed on the (units ( unknown) date) operative table in unknown) the right lateral decubitus position after (unknown) (no (unknown) (unknown) prepared from the (units (unknown) date) ankle to the iliac unknown) crest with ChloroPrep in the usual fashion (unknown) (no (unknown) (unknown) prosthetic. (units (un known) date) unknown) (unknown) (no (unknown) (unknown) range of motion (units (unknown) date) with 45 degrees unknown) internal rotation without dislocation. At 90 (unknown) (no (unknown) (unknown) reamer. The cup 1 (units (unknown) date) mm larger than the unknown) last reamer was then inserted using the (unknown) (no (unknown) (unknown) receive Aspirin (units (unknown) date) and sequential unknown) compression devices for DVT prophylaxis. The (unknown) (no (unknown) (unknown) received (units (unkno wn) date) pre-operative unknown) antibiotics and was taken to the operating room and (unknown) (no (unknown) (unknown) saline. Finally (units (unknown) date) the femoral head unknown) was impacted onto the stem. The acetabulum was (unknown) (no (unknown) (unknown) satisfactory (units (u nknown) date) anesthesia. A full unknown) time out was performed. The left leg was (unknown) (no (unknown) (unknown) self retaining (units (unknown) date) retractor. The unknown) trochanteric bursa was excised with care being (unknown) (no (unknown) (unknown) taken to avoid (units (unknown) date) the sciatic nerve, unknown) which was identified and protected throughout (unknown) (no (unknown) (unknown) the case. The (units ( unknown) date) short external unknown) rotators were incised and the capsulomuscular flap (unknown) (no (unknown) (unknown) the hip relocated (units (unknown) date) and checked for unknown) leg length and stability. An intraoperative (unknown) (no (unknown) (unknown) thrombosis, (units (un known) date) pulmonary unknown) embolism, stroke, coma, heart attack, permanent paralysis (unknown) (no (unknown) (unknown) tissues were (units (u nknown) date) removed. Reaming unknown) was performed initially going up in 2 mm (unknown) (no (unknown) (unknown) trials were (units (un known) date) removed. unknown) (unknown) (no (unknown) (unknown) was carried (units (un known) date) sharply to the unknown) fascia soila, which was divided and retracted with a (unknown) (no (unknown) (unknown) was felt to be (units (unknown) date) satisfactory and unknown) the appropriate components were opened, and the (unknown) (no (unknown) (unknown) was good (units (unkno wn) date) stability of the unknown) broach in the femur. (unknown) (no (unknown) (unknown) was raised and (units (unknown) date) tagged for later unknown) repair. The hip was dislocated, and a femoral (unknown) (no (unknown) (unknown) was stable in the (units (unknown) date) position of sleep, unknown) of squatting, and could be put through a (unknown) (no (unknown) (unknown) weight bearing as (units (unknown) date) tolerated and unknown) posterior hip precautions. The patient will (unknown) (no (unknown) (unknown) while trialing (units ( unknown) date) with head options. unknown) The hip was meticulously irrigated with normal Result panel 93 (unknown) (no (unknown) (unknown) (no value) (units (unk nown) date) unknown) (unknown) (no (unknown) (unknown) [id number] (units (unkno wn) date) unknown) (unknown) (no (unknown) (unknown) 08/13/22 1357 (units ( unknown) date) unknown) (unknown) (no (unknown) (unknown) A trial neutral (units (unknown) date) liner was placed. unknown) (unknown) (no (unknown) (unknown) Age/Sex: 56 / M (units (unknown) date) unknown) (unknown) (no (unknown) (unknown) Anesthesia Type: (units (unknown) date) General and Spinal unknown) (unknown) (no (unknown) (unknown) Circuit Design Engineer: Raleigh Hammer (units (unknown) date) Rafal unknown) (unknown) (no (unknown) (unknown) Blood products (units (unknown) date) transfused: none unknown) (unknown) (no (unknown) (unknown) Closure Type: (units ( unknown) date) primary unknown) (unknown) (no (unknown) (unknown) Complications: (units (unknown) date) none unknown) (unknown) (no (unknown) (unknown) Condition: stable (units (unknown) date) unknown) (unknown) (no (unknown) (unknown) : 1965 (units (unknown) date) Acct:[id number] unknown) (unknown) (no (unknown) (unknown) Date of Service: (units (unknown) date) 08/13/22 unknown) (unknown) (no (unknown) (unknown) Date of (units (unkno wn) date) procedure: unknown) 08/13/22 (unknown) (no (unknown) (unknown) Disposition: (units (u nknown) date) Acute Care unknown) (unknown) (no (unknown) (unknown) Estimated Blood (units (unknown) date) Loss (mL): 250 unknown) (unknown) (no (unknown) (unknown) Findings: (units (unkn own) date) unknown) (unknown) (no (unknown) (unknown) Indications: (units (u nknown) date) unknown) (unknown) (no (unknown) (unknown) [facility] (units (unknown) date) [address] [place] [address] unknown) [place] [address] (unknown) (no (unknown) (unknown) Left total hip (units (unknown) date) arthroplasty unknown) posterior approach (unknown) (no (unknown) (unknown) Operative (units (unkn own) date) Date/Time/Diagnose unknown) s (unknown) (no (unknown) (unknown) Operative Note (units (unknown) date) unknown) (unknown) (no (unknown) (unknown) Operative Notes (units (unknown) date) unknown) (unknown) (no (unknown) (unknown) Patient: (units (unkno wn) date) Brendan Matthews unknown) MR#: [id number] (unknown) (no (unknown) (unknown) Plan for (units (unkno wn) date) aftercare: unknown) (unknown) (no (unknown) (unknown) Post-op (units (unkno wn) date) diagnosis: same unknown) (unknown) (no (unknown) (unknown) Post-operative (units (unknown) date) unknown) (unknown) (no (unknown) (unknown) Pre-op diagnosis: (units (unknown) date) Left hip unknown) osteoarthritis (unknown) (no (unknown) (unknown) Procedure + (units (un known) date) Clinicians unknown) (unknown) (no (unknown) (unknown) Procedure in (units (u nknown) date) detail: unknown) (unknown) (no (unknown) (unknown) Procedure: (units (unk nown) date) unknown) (unknown) (no (unknown) (unknown) Prosthetic (units (unk nown) date) devices, grafts, unknown) tissues, transplants, or devices: (unknown) (no (unknown) (unknown) Provider: (units (unkn own) date) Natasha Talavera MD unknown) (unknown) (no (unknown) (unknown) Retractors were (units (unknown) date) placed around the unknown) femur. The canal was opened with a box (unknown) (no (unknown) (unknown) Retractors were (units (unknown) date) placed to expose unknown) the acetabulum. The labrum and central soft (unknown) (no (unknown) (unknown) Risks discussed (units (unknown) date) included, but were unknown) not limited to, failure to relieve pain, leg (unknown) (no (unknown) (unknown) Same procedure as (units (unknown) date) scheduled: Yes unknown) (unknown) (no (unknown) (unknown) Severe left hip (units (unknown) date) osteoarthritis, unknown) adequate stability (unknown) (no (unknown) (unknown) Signed (units (unkno wn) date) By:<Electronically unknown) signed by Natasha Talavera MD> (unknown) (no (unknown) (unknown) Ilan and marcia (units (unknown) date) size 6 standard unknown) offset anthology, 56 mm R3 cup, neutral poly (unknown) (no (unknown) (unknown) Specimen(s): none (units (unknown) date) sent unknown) (unknown) (no (unknown) (unknown) Surgeon: Natasha Caceres (units (unknown) date) Ilan unknown) (unknown) (no (unknown) (unknown) The acetabular (units (unknown) date) liner was impacted unknown) into position. The final stem was then (unknown) (no (unknown) (unknown) The broach was (units (unknown) date) placed in the unknown) canal. A trial head and neck were then placed and (unknown) (no (unknown) (unknown) The (units (unkno wn) date) capsulomuscular unknown) flap was then repaired to the greater trochanter though an (unknown) (no (unknown) (unknown) The hip was (units (unk nown) date) approached through unknown) an approximately 20 cm incision centered over the (unknown) (no (unknown) (unknown) The patient has (units (unknown) date) had progressively unknown) worsening left hip pain with radiographic (unknown) (no (unknown) (unknown) The patient was (units (unknown) date) seen in the unknown) pre-operative area, where the patient identified the (unknown) (no (unknown) (unknown) The patient will (units (unknown) date) be maintained on a unknown) standard total hip replacement protocol with (unknown) (no (unknown) (unknown) Time of (units (unkno wn) date) procedure: 07:55 unknown) (unknown) (no (unknown) (unknown) alternatives to (units (unknown) date) surgery were unknown) discussed with the patient prior to proceeding. (unknown) (no (unknown) (unknown) and , as (units ( unknown) date) well as the unknown) potential need for eventual revision of the (unknown) (no (unknown) (unknown) and draped (units (unk nown) date) through sterile unknown) drapes. (unknown) (no (unknown) (unknown) applied and the (units (unknown) date) patient was taken unknown) to recovery having tolerated the procedure (unknown) (no (unknown) (unknown) appropriate (units (un known) date) anteversion unknown) guides. It was further stabilized with a single screw. (unknown) (no (unknown) (unknown) awl hole using the (units (unknown) date) tag sutures. The unknown) short external rotators were repaired with a (unknown) (no (unknown) (unknown) changes (units (unkno wn) date) consistent with unknown) arthritis. Non-operative management has failed and the (unknown) (no (unknown) (unknown) chili pepper (units (u nknown) date) broach was then unknown) used, followed by sequential broaching until there (unknown) (no (unknown) (unknown) cleared of all (units (unknown) date) material and the unknown) hip relocated one final time. (unknown) (no (unknown) (unknown) cutting osteotome, (units (unknown) date) followed by a T unknown) handled reamer and a lateralizing reamer. The (unknown) (no (unknown) (unknown) degrees flexion, (units (unknown) date) internal rotation unknown) to 70? was possible before dislocation. This (unknown) (no (unknown) (unknown) film confirmed (units (unknown) date) the component unknown) position and no evidence of fracture. The patient (unknown) (no (unknown) (unknown) greater (units (unkno wn) date) trochanter and unknown) curving gently posteriorly as it went proximally. This (unknown) (no (unknown) (unknown) impacted into the (units (unknown) date) prepared femoral unknown) canal. A brief Betadine soak was performed (unknown) (no (unknown) (unknown) increments, then (units (unknown) date) 1 mm increments unknown) until good bite was obtained with an odd sized (unknown) (no (unknown) (unknown) layer was closed (units (unknown) date) with barbed unknown) sutures and SteriStrips. An Aquacel Ag dressing was (unknown) (no (unknown) (unknown) left hip as the (units (unknown) date) operative site and unknown) this was marked with my initials. The patient (unknown) (no (unknown) (unknown) length (units (unkno wn) date) discrepancy, unknown) dislocation, stiffness, infection, nerve damage, deep venous (unknown) (no (unknown) (unknown) liner, one 6.5 mm (units (unknown) date) screw, 36 by-3 unknown) Oxinium head (unknown) (no (unknown) (unknown) neck osteotomy (units (unknown) date) performed unknown) approximately 15 mm above the lesser trochanter. (unknown) (no (unknown) (unknown) nonabsorbable (units ( unknown) date) suture. The fascia unknown) soila was closed with Vicryl. The subcutaneous (unknown) (no (unknown) (unknown) patient has (units (un known) date) requested total unknown) hip replacement. The risks, benefits and (unknown) (no (unknown) (unknown) patient will be (units (unknown) date) discharged home unknown) when safe for the home environment. (unknown) (no (unknown) (unknown) placed on the (units ( unknown) date) operative table in unknown) the right lateral decubitus position after (unknown) (no (unknown) (unknown) prepared from the (units (unknown) date) ankle to the iliac unknown) crest with ChloroPrep in the usual fashion (unknown) (no (unknown) (unknown) prosthetic. (units (un known) date) unknown) (unknown) (no (unknown) (unknown) range of motion (units (unknown) date) with 45 degrees unknown) internal rotation without dislocation. At 90 (unknown) (no (unknown) (unknown) reamer. The cup 1 (units (unknown) date) mm larger than the unknown) last reamer was then inserted using the (unknown) (no (unknown) (unknown) receive Aspirin (units (unknown) date) and sequential unknown) compression devices for DVT prophylaxis. The (unknown) (no (unknown) (unknown) received (units (unkno wn) date) pre-operative unknown) antibiotics and was taken to the operating room and (unknown) (no (unknown) (unknown) saline. Finally (units (unknown) date) the femoral head unknown) was impacted onto the stem. The acetabulum was (unknown) (no (unknown) (unknown) satisfactory (units (u nknown) date) anesthesia. A full unknown) time out was performed. The left leg was (unknown) (no (unknown) (unknown) self retaining (units (unknown) date) retractor. The unknown) trochanteric bursa was excised with care being (unknown) (no (unknown) (unknown) taken to avoid (units (unknown) date) the sciatic nerve, unknown) which was identified and protected throughout (unknown) (no (unknown) (unknown) the case. The (units ( unknown) date) short external unknown) rotators were incised and the capsulomuscular flap (unknown) (no (unknown) (unknown) the hip relocated (units (unknown) date) and checked for unknown) leg length and stability. An intraoperative (unknown) (no (unknown) (unknown) thrombosis, (units (un known) date) pulmonary unknown) embolism, stroke, coma, heart attack, permanent paralysis (unknown) (no (unknown) (unknown) tissues were (units (u nknown) date) removed. Reaming unknown) was performed initially going up in 2 mm (unknown) (no (unknown) (unknown) trials were (units (un known) date) removed. unknown) (unknown) (no (unknown) (unknown) was carried (units (un known) date) sharply to the unknown) fascia soila, which was divided and retracted with a (unknown) (no (unknown) (unknown) was felt to be (units (unknown) date) satisfactory and unknown) the appropriate components were opened, and the (unknown) (no (unknown) (unknown) was good (units (unkno wn) date) stability of the unknown) broach in the femur. (unknown) (no (unknown) (unknown) was raised and (units (unknown) date) tagged for later unknown) repair. The hip was dislocated, and a femoral (unknown) (no (unknown) (unknown) was stable in the (units (unknown) date) position of sleep, unknown) of squatting, and could be put through a (unknown) (no (unknown) (unknown) weight bearing as (units (unknown) date) tolerated and unknown) posterior hip precautions. The patient will (unknown) (no (unknown) (unknown) well. (units (unkno wn) date) unknown) (unknown) (no (unknown) (unknown) while trialing (units ( unknown) date) with head options. unknown) The hip was meticulously irrigated with normal Result panel 94 (unknown) (no date) (unknown) (unknown) 13.1 g/dl (unkn own) (unknown) (no date) (unknown) (unknown) 39.2 % (unkn own) Result panel 95 (unknown) (no (unknown) (unknown) (no value) (units (unk nown) date) unknown) (unknown) (no (unknown) (unknown) (past 8 hours): (units (unknown) date) unknown) (unknown) (no (unknown) (unknown) [id number] (units (unkno wn) date) unknown) (unknown) (no (unknown) (unknown) 08/13/22 08/14/22 (units (unknown) date) unknown) (unknown) (no (unknown) (unknown) 08/13/22 06:00 (units (unknown) date) unknown) (unknown) (no (unknown) (unknown) 08/13/22 10:55 (units (unknown) date) unknown) (unknown) (no (unknown) (unknown) 08/13/22 (units (unkno wn) date) unknown) (unknown) (no (unknown) (unknown) 08/14/22 06:08 (units (unknown) date) unknown) (unknown) (no (unknown) (unknown) 05:32 (units (unkno wn) date) unknown) (unknown) (no (unknown) (unknown) 07:24 06:08 (units (un known) date) unknown) (unknown) (no (unknown) (unknown) 200 mg PO DAILY (units (unknown) date) unknown) (unknown) (no (unknown) (unknown) 23:20 08/14/22 (units (unknown) date) unknown) (unknown) (no (unknown) (unknown) 5 mg PO BEDTIME (units (unknown) date) unknown) (unknown) (no (unknown) (unknown) 500 mg PO Q4H MDD (units (unknown) date) 2000 PRN (Reason: unknown) Breakthrough Pain, Moderate) (unknown) (no (unknown) (unknown) Age/Sex: 56 / M (units (unknown) date) unknown) (unknown) (no (unknown) (unknown) Anesthesia Type: (units (unknown) date) General and Spinal unknown) (unknown) (no (unknown) (unknown) Circuit Design Engineer: Raleigh Hammer (units (unknown) date) Rafal unknown) (unknown) (no (unknown) (unknown) Attending (units (unkn own) date) Provider: unknown) Natasha Talavera (unknown) (no (unknown) (unknown) Blood Pressure (units (unknown) date) 124/59 L 127/57 L unknown) (unknown) (no (unknown) (unknown) Blood products (units (unknown) date) transfused: none unknown) (unknown) (no (unknown) (unknown) Borderline (units (unk nown) date) hypertension unknown) (unknown) (no (unknown) (unknown) COVID-19 virus (units (unknown) date) infection (2020) unknown) (unknown) (no (unknown) (unknown) Cataract (units (unkno wn) date) unknown) (unknown) (no (unknown) (unknown) Chief complaint: (units (unknown) date) Left CARO *OPB* unknown) (unknown) (no (unknown) (unknown) Closure Type: (units ( unknown) date) primary unknown) (unknown) (no (unknown) (unknown) Comment: (units (unkno wn) date) unknown) (unknown) (no (unknown) (unknown) Consult to (units (unk nown) date) Anesthesiology unknown) Routine (unknown) (no (unknown) (unknown) Consult to (units (unk nown) date) Discharge Planning unknown) Routine (unknown) (no (unknown) (unknown) Consult to (units (unk nown) date) Physical Therapy unknown) Evaluate + Treat (unknown) (no (unknown) (unknown) Consulting (units (unk nown) date) Provider: unknown) Anesthesiologist (unknown) (no (unknown) (unknown) Consults: (units (unkn own) date) unknown) (unknown) (no (unknown) (unknown) : 1965 (units (unknown) date) Acct:[id number] unknown) (unknown) (no (unknown) (unknown) Date Patient Seen: (units (unknown) date) 08/14/22 unknown) (unknown) (no (unknown) (unknown) Date of Service: (units (unknown) date) 08/13/22 unknown) (unknown) (no (unknown) (unknown) Date of procedure: (units (unknown) date) 08/13/22 unknown) (unknown) (no (unknown) (unknown) Deep Vein (units (unkn own) date) Thrombosis/Pulmonar unknown) y Embolism Present on Admission: No (unknown) (no (unknown) (unknown) Discharge (Order); (units (unknown) date) Ordered 08/14/22 unknown) (unknown) (no (unknown) (unknown) Discharge Data (units (unknown) date) unknown) (unknown) (no (unknown) (unknown) Discharge Date: (units (unknown) date) 08/14/22 unknown) (unknown) (no (unknown) (unknown) Discharge Orders: (units (unknown) date) unknown) (unknown) (no (unknown) (unknown) Discharge Plan (units (unknown) date) unknown) (unknown) (no (unknown) (unknown) Discharge (units (unkn own) date) Providers unknown) (unknown) (no (unknown) (unknown) Discharge Summary (units (unknown) date) unknown) (unknown) (no (unknown) (unknown) Discharge orders + (units (unknown) date) Medications unknown) (unknown) (no (unknown) (unknown) Discharge (units (unkn own) date) provider: unknown) (unknown) (no (unknown) (unknown) Diverticulitis (units (unknown) date) () unknown) (unknown) (no (unknown) (unknown) Jose Alfredo Dhaliwal MD (units (unknown) date) [Primary Care unknown) Provider] (unknown) (no (unknown) (unknown) Elevated WBCs (units ( unknown) date) () unknown) (unknown) (no (unknown) (unknown) Estimated Blood (units (unknown) date) Loss (mL): 250 unknown) (unknown) (no (unknown) (unknown) Exam (units (unkno wn) date) unknown) (unknown) (no (unknown) (unknown) Findings: (units (unkn own) date) unknown) (unknown) (no (unknown) (unknown) Follow (units (unkno wn) date) up/Referrals: unknown) (unknown) (no (unknown) (unknown) HLD (units (unkno wn) date) (hyperlipidemia) unknown) (unknown) (no (unknown) (unknown) Hct 39.2 L (units (unk nown) date) unknown) (unknown) (no (unknown) (unknown) Hgb 13.1 L (units (unk nown) date) unknown) (unknown) (no (unknown) (unknown) History of Present (units (unknown) date) Illness unknown) (unknown) (no (unknown) (unknown) History of (units (unk nown) date) colonoscopy unknown) (unknown) (no (unknown) (unknown) History of liver (units (unknown) date) biopsy () unknown) (unknown) (no (unknown) (unknown) 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 (03/31/19) (unknown) (no (unknown) (unknown) Indications: (units (u nknown) date) unknown) (unknown) (no (unknown) (unknown) [facility] (units (unknown) date) [address] unknown) [place] [id number] (unknown) (no (unknown) (unknown) Josselyn Parada PA-C (units (unknown) date) unknown) (unknown) (no (unknown) (unknown) Kidney stones (units ( unknown) date) unknown) (unknown) (no (unknown) (unknown) Laboratory Results (units (unknown) date) - last 24 hr unknown) (unknown) (no (unknown) (unknown) Labs (units (unkno wn) date) unknown) (unknown) (no (unknown) (unknown) Labs: (units (unkno wn) date) unknown) (unknown) (no (unknown) (unknown) Left total hip (units (unknown) date) arthroplasty unknown) posterior approach (unknown) (no (unknown) (unknown) Jose Alfredo Dhaliwal MD (units (unknown) date) unknown) (unknown) (no (unknown) (unknown) Medical History (units (unknown) date) (Reviewed 08/13/22 unknown) @ 07:46 by Natasha Talavera MD) (unknown) (no (unknown) (unknown) Melanoma (-2016) (units (unknown) date) unknown) (unknown) (no (unknown) (unknown) Narrative: (units (unk nown) date) unknown) (unknown) (no (unknown) (unknown) No Action (units (unkn own) date) unknown) (unknown) (no (unknown) (unknown) Objective (units (unkn own) date) unknown) (unknown) (no (unknown) (unknown) Operative (units (unkn own) date) Date/Time/Diagnoses unknown) (unknown) (no (unknown) (unknown) Operative Notes (units (unknown) date) unknown) (unknown) (no (unknown) (unknown) Ordered By: Josselyn (units (unknown) date) Beh unknown) (unknown) (no (unknown) (unknown) Osteoarthritis (units (unknown) date) unknown) (unknown) (no (unknown) (unknown) Oxygen Delivery (units (unknown) date) Method Nasal unknown) Cannula (unknown) (no (unknown) (unknown) Oxygen Flow Rate 0 (units (unknown) date) 0 unknown) (unknown) (no (unknown) (unknown) Oxygen Flow Rate 0 (units (unknown) date) unknown) (unknown) (no (unknown) (unknown) PFSH (units (unkno wn) date) unknown) (unknown) (no (unknown) (unknown) Patient (units (unkno wn) date) Disposition: Home unknown) (unknown) (no (unknown) (unknown) Patient: (units (unkno wn) date) Brendan Matthews unknown) MR#: [id number] (unknown) (no (unknown) (unknown) Physician (units (unkn own) date) Instructions: post unknown) op CARO protocol (unknown) (no (unknown) (unknown) Pneumonia (units (unkn own) date) unknown) (unknown) (no (unknown) (unknown) Post-op diagnosis: (units (unknown) date) same unknown) (unknown) (no (unknown) (unknown) Pre-op diagnosis: (units (unknown) date) Left hip unknown) osteoarthritis (unknown) (no (unknown) (unknown) Prescriptions: (units (unknown) date) unknown) (unknown) (no (unknown) (unknown) Primary Care (units (u nknown) date) Provider: unknown) Jose Alfredo Dhaliwal (unknown) (no (unknown) (unknown) Primary care (units (u nknown) date) physician: unknown) (unknown) (no (unknown) (unknown) Procedure + (units (un known) date) Clinicians unknown) (unknown) (no (unknown) (unknown) Procedure: (units (unk nown) date) unknown) (unknown) (no (unknown) (unknown) Prosthetic (units (unk nown) date) devices, grafts, unknown) tissues, transplants, or devices: (unknown) (no (unknown) (unknown) Provider (units (unkno wn) date) unknown) (unknown) (no (unknown) (unknown) Provider: (units (unkn own) date) Josselyn Pardaa P.A-C unknown) (unknown) (no (unknown) (unknown) Pulse Oximetry 95 (units (unknown) date) 97 unknown) (unknown) (no (unknown) (unknown) Pulse Rate 74 68 (units (unknown) date) unknown) (unknown) (no (unknown) (unknown) Quality (units (unkno wn) date) unknown) (unknown) (no (unknown) (unknown) Reason for (units (unk nown) date) consultation: unknown) Regional block for post operative pain control (unknown) (no (unknown) (unknown) Respiratory Rate (units (unknown) date) 19 18 unknown) (unknown) (no (unknown) (unknown) Risks discussed (units (unknown) date) included, but were unknown) not limited to, failure to relieve pain, leg (unknown) (no (unknown) (unknown) SARS-CoV-2 (PCR) (units (unknown) date) Negative unknown) (unknown) (no (unknown) (unknown) Same procedure as (units (unknown) date) scheduled: Yes unknown) (unknown) (no (unknown) (unknown) Severe left hip (units (unknown) date) osteoarthritis, unknown) adequate stability (unknown) (no (unknown) (unknown) Signed By: (units (unk nown) date) unknown) (unknown) (no (unknown) (unknown) Talavera and nephew (units (unknown) date) size 6 standard unknown) offset anthology, 56 mm R3 cup, neutral poly (unknown) (no (unknown) (unknown) Smoking Status: (units (unknown) date) Never smoker unknown) (unknown) (no (unknown) (unknown) Social History (units (unknown) date) (Reviewed 08/13/22 unknown) @ 07:46 by Natasha Talavera MD) (unknown) (no (unknown) (unknown) Specimen(s): none (units (unknown) date) sent unknown) (unknown) (no (unknown) (unknown) Stand Alone Forms: (units (unknown) date) Patient Portal/API unknown) (unknown) (no (unknown) (unknown) Surgeon: Natasha Caceres (units (unknown) date) Ilan unknown) (unknown) (no (unknown) (unknown) Surgical History (units (unknown) date) (Reviewed 08/13/22 unknown) @ 07:46 by Natasha Talavera MD) (unknown) (no (unknown) (unknown) Temperature 98.5 F (units (unknown) date) 97.7 F unknown) (unknown) (no (unknown) (unknown) The patient has (units (unknown) date) had progressively unknown) worsening left hip pain with radiographic (unknown) (no (unknown) (unknown) Time Patient Seen: (units (unknown) date) 07:01 unknown) (unknown) (no (unknown) (unknown) Time of procedure: (units (unknown) date) 07:55 unknown) (unknown) (no (unknown) (unknown) Tingling of both (units (unknown) date) feet unknown) (unknown) (no (unknown) (unknown) VTE (units (unkno wn) date) unknown) (unknown) (no (unknown) (unknown) Visit (units (unkno wn) date) Report/Discharge unknown) Packet (unknown) (no (unknown) (unknown) Vital Signs (units (un known) date) unknown) (unknown) (no (unknown) (unknown) [Embedded Image (units (unknown) date) Not Available] unknown) (unknown) (no (unknown) (unknown) acetaminophen (units ( unknown) date) [Tylenol Extra unknown) Strength] 500 mg Tablet (unknown) (no (unknown) (unknown) alcohol intake: (units (unknown) date) never unknown) (unknown) (no (unknown) (unknown) alternatives to (units (unknown) date) surgery were unknown) discussed with the patient prior to proceeding. (unknown) (no (unknown) (unknown) and , as well (units (unknown) date) as the potential unknown) need for eventual revision of the (unknown) (no (unknown) (unknown) celecoxib 200 mg (units (unknown) date) Capsule unknown) (unknown) (no (unknown) (unknown) changes consistent (units (unknown) date) with arthritis. unknown) Non-operative management has failed and the (unknown) (no (unknown) (unknown) household members: (units (unknown) date) spouse unknown) (unknown) (no (unknown) (unknown) length discrepancy, (units (unknown) date) dislocation, unknown) stiffness, infection, nerve damage, deep venous (unknown) (no (unknown) (unknown) liner, one 6.5 mm (units (unknown) date) screw, 36 by-3 unknown) Oxinium head (unknown) (no (unknown) (unknown) patient has (units (un known) date) requested total hip unknown) replacement. The risks, benefits and (unknown) (no (unknown) (unknown) prosthetic. (units (un known) date) unknown) (unknown) (no (unknown) (unknown) rosuvastatin 5 mg (units (unknown) date) Tablet unknown) (unknown) (no (unknown) (unknown) thrombosis, (units (un known) date) pulmonary embolism, unknown) stroke, coma, heart attack, permanent paralysis Result panel 96 (unknown) (no (unknown) (unknown) (no value) (units (unk nown) date) unknown) (unknown) (no (unknown) (unknown) (past 8 hours): (units (unknown) date) unknown) (unknown) (no (unknown) (unknown) [id number] (units (unkno wn) date) unknown) (unknown) (no (unknown) (unknown) 08/13/22 08/14/22 (units (unknown) date) unknown) (unknown) (no (unknown) (unknown) 08/13/22 06:00 (units (unknown) date) unknown) (unknown) (no (unknown) (unknown) 08/13/22 10:55 (units (unknown) date) unknown) (unknown) (no (unknown) (unknown) 08/13/22 (units (unkno wn) date) unknown) (unknown) (no (unknown) (unknown) 08/14/22 06:08 (units (unknown) date) unknown) (unknown) (no (unknown) (unknown) 05:32 (units (unkno wn) date) unknown) (unknown) (no (unknown) (unknown) 07:24 06:08 (units (un known) date) unknown) (unknown) (no (unknown) (unknown) 200 mg PO DAILY (units (unknown) date) unknown) (unknown) (no (unknown) (unknown) 23:20 08/14/22 (units (unknown) date) unknown) (unknown) (no (unknown) (unknown) 25 mg PO Q6HR PRN (units (unknown) date) (Reason: Spasms) unknown) Qty: 60 0RF (unknown) (no (unknown) (unknown) 5 mg PO BEDTIME (units (unknown) date) unknown) (unknown) (no (unknown) (unknown) 500 mg PO Q4H MDD (units (unknown) date) 2000 PRN (Reason: unknown) Breakthrough Pain, Moderate) (unknown) (no (unknown) (unknown) Age/Sex: 56 / M (units (unknown) date) unknown) (unknown) (no (unknown) (unknown) Anesthesia Type: (units (unknown) date) General and Spinal unknown) (unknown) (no (unknown) (unknown) Circuit Design Engineer: Raleigh Hammer (units (unknown) date) Rafal unknown) (unknown) (no (unknown) (unknown) Attending (units (unkn own) date) Provider: unknown) Natasha Talavera (unknown) (no (unknown) (unknown) Blood Pressure (units (unknown) date) 124/59 L 127/57 L unknown) (unknown) (no (unknown) (unknown) Blood products (units (unknown) date) transfused: none unknown) (unknown) (no (unknown) (unknown) Borderline (units (unk nown) date) hypertension unknown) (unknown) (no (unknown) (unknown) COVID-19 virus (units (unknown) date) infection (2020) unknown) (unknown) (no (unknown) (unknown) Cataract (units (unkno wn) date) unknown) (unknown) (no (unknown) (unknown) Chief complaint: (units (unknown) date) Left CARO *OPB* unknown) (unknown) (no (unknown) (unknown) Closure Type: (units ( unknown) date) primary unknown) (unknown) (no (unknown) (unknown) Comment: (units (unkno wn) date) unknown) (unknown) (no (unknown) (unknown) Consult to (units (unk nown) date) Anesthesiology unknown) Routine (unknown) (no (unknown) (unknown) Consult to (units (unk nown) date) Discharge Planning unknown) Routine (unknown) (no (unknown) (unknown) Consult to (units (unk nown) date) Physical Therapy unknown) Evaluate + Treat (unknown) (no (unknown) (unknown) Consulting (units (unk nown) date) Provider: unknown) Anesthesiologist (unknown) (no (unknown) (unknown) Consults: (units (unkn own) date) unknown) (unknown) (no (unknown) (unknown) Continued (units (unkn own) date) unknown) (unknown) (no (unknown) (unknown) : 1965 (units (unknown) date) Acct:[id number] unknown) (unknown) (no (unknown) (unknown) Date Patient Seen: (units (unknown) date) 08/14/22 unknown) (unknown) (no (unknown) (unknown) Date of Service: (units (unknown) date) 08/13/22 unknown) (unknown) (no (unknown) (unknown) Date of procedure: (units (unknown) date) 08/13/22 unknown) (unknown) (no (unknown) (unknown) Deep Vein (units (unkn own) date) Thrombosis/Pulmonar unknown) y Embolism Present on Admission: No (unknown) (no (unknown) (unknown) Discharge (Order); (units (unknown) date) Ordered 08/14/22 unknown) (unknown) (no (unknown) (unknown) Discharge Data (units (unknown) date) unknown) (unknown) (no (unknown) (unknown) Discharge Date: (units (unknown) date) 08/14/22 unknown) (unknown) (no (unknown) (unknown) Discharge Orders: (units (unknown) date) unknown) (unknown) (no (unknown) (unknown) Discharge Plan (units (unknown) date) unknown) (unknown) (no (unknown) (unknown) Discharge (units (unkn own) date) Providers unknown) (unknown) (no (unknown) (unknown) Discharge Summary (units (unknown) date) unknown) (unknown) (no (unknown) (unknown) Discharge orders + (units (unknown) date) Medications unknown) (unknown) (no (unknown) (unknown) Discharge (units (unkn own) date) provider: unknown) (unknown) (no (unknown) (unknown) Diverticulitis (units (unknown) date) () unknown) (unknown) (no (unknown) (unknown) Jose Alfredo Dhaliwal MD (units (unknown) date) [Primary Care unknown) Provider] (unknown) (no (unknown) (unknown) Elevated WBCs (units ( unknown) date) () unknown) (unknown) (no (unknown) (unknown) Estimated Blood (units (unknown) date) Loss (mL): 250 unknown) (unknown) (no (unknown) (unknown) Exam (units (unkno wn) date) unknown) (unknown) (no (unknown) (unknown) Findings: (units (unkn own) date) unknown) (unknown) (no (unknown) (unknown) Follow (units (unkno wn) date) up/Referrals: unknown) (unknown) (no (unknown) (unknown) HLD (units (unkno wn) date) (hyperlipidemia) unknown) (unknown) (no (unknown) (unknown) Hct 39.2 L (units (unk nown) date) unknown) (unknown) (no (unknown) (unknown) Hgb 13.1 L (units (unk nown) date) unknown) (unknown) (no (unknown) (unknown) History of Present (units (unknown) date) Illness unknown) (unknown) (no (unknown) (unknown) History of (units (unk nown) date) colonoscopy unknown) (unknown) (no (unknown) (unknown) History of liver (units (unknown) date) biopsy () unknown) (unknown) (no (unknown) (unknown) 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 (03/31/19) (unknown) (no (unknown) (unknown) Indications: (units (u nknown) date) unknown) (unknown) (no (unknown) (unknown) [facility] (units (unknown) date) [address] unknown) [place] [id number] (unknown) (no (unknown) (unknown) Josselyn Parada PA-C (units (unknown) date) unknown) (unknown) (no (unknown) (unknown) Kidney stones (units ( unknown) date) unknown) (unknown) (no (unknown) (unknown) Laboratory Results (units (unknown) date) - last 24 hr unknown) (unknown) (no (unknown) (unknown) Labs (units (unkno wn) date) unknown) (unknown) (no (unknown) (unknown) Labs: (units (unkno wn) date) unknown) (unknown) (no (unknown) (unknown) Left total hip (units (unknown) date) arthroplasty unknown) posterior approach (unknown) (no (unknown) (unknown) Jose Alfredo Dhaliwal MD (units (unknown) date) unknown) (unknown) (no (unknown) (unknown) Medical History (units (unknown) date) (Reviewed 08/13/22 unknown) @ 07:46 by Natasha Talavera MD) (unknown) (no (unknown) (unknown) Melanoma (-2017) (units (unknown) date) unknown) (unknown) (no (unknown) (unknown) Narrative: (units (unk nown) date) unknown) (unknown) (no (unknown) (unknown) New (units (unkno wn) date) unknown) (unknown) (no (unknown) (unknown) Objective (units (unkn own) date) unknown) (unknown) (no (unknown) (unknown) Operative (units (unkn own) date) Date/Time/Diagnoses unknown) (unknown) (no (unknown) (unknown) Operative Notes (units (unknown) date) unknown) (unknown) (no (unknown) (unknown) Ordered By: Josselyn (units (unknown) date) Beh unknown) (unknown) (no (unknown) (unknown) Osteoarthritis (units (unknown) date) unknown) (unknown) (no (unknown) (unknown) Oxygen Delivery (units (unknown) date) Method Nasal unknown) Cannula (unknown) (no (unknown) (unknown) Oxygen Flow Rate 0 (units (unknown) date) 0 unknown) (unknown) (no (unknown) (unknown) Oxygen Flow Rate 0 (units (unknown) date) unknown) (unknown) (no (unknown) (unknown) PFSH (units (unkno wn) date) unknown) (unknown) (no (unknown) (unknown) Patient (units (unkno wn) date) Disposition: Home unknown) (unknown) (no (unknown) (unknown) Patient: (units (unkno wn) date) Brendan Matthews unknown) MR#: [id number] (unknown) (no (unknown) (unknown) Physician (units (unkn own) date) Instructions: post unknown) op CARO protocol (unknown) (no (unknown) (unknown) Pneumonia (units (unkn own) date) unknown) (unknown) (no (unknown) (unknown) Post-op diagnosis: (units (unknown) date) same unknown) (unknown) (no (unknown) (unknown) Pre-op diagnosis: (units (unknown) date) Left hip unknown) osteoarthritis (unknown) (no (unknown) (unknown) Prescriptions: (units (unknown) date) unknown) (unknown) (no (unknown) (unknown) Primary Care (units (u nknown) date) Provider: unknown) Jose Alfredo Dhaliwal (unknown) (no (unknown) (unknown) Primary care (units (u nknown) date) physician: unknown) (unknown) (no (unknown) (unknown) Procedure + (units (un known) date) Clinicians unknown) (unknown) (no (unknown) (unknown) Procedure: (units (unk nown) date) unknown) (unknown) (no (unknown) (unknown) Prosthetic (units (unk nown) date) devices, grafts, unknown) tissues, transplants, or devices: (unknown) (no (unknown) (unknown) Provider (units (unkno wn) date) unknown) (unknown) (no (unknown) (unknown) Provider: (units (unkn own) date) Josselyn Parada P.A-C unknown) (unknown) (no (unknown) (unknown) Pulse Oximetry 95 (units (unknown) date) 97 unknown) (unknown) (no (unknown) (unknown) Pulse Rate 74 68 (units (unknown) date) unknown) (unknown) (no (unknown) (unknown) Quality (units (unkno wn) date) unknown) (unknown) (no (unknown) (unknown) Reason for (units (unk nown) date) consultation: unknown) Regional block for post operative pain control (unknown) (no (unknown) (unknown) Respiratory Rate (units (unknown) date) 19 18 unknown) (unknown) (no (unknown) (unknown) Risks discussed (units (unknown) date) included, but were unknown) not limited to, failure to relieve pain, leg (unknown) (no (unknown) (unknown) SARS-CoV-2 (PCR) (units (unknown) date) Negative unknown) (unknown) (no (unknown) (unknown) Same procedure as (units (unknown) date) scheduled: Yes unknown) (unknown) (no (unknown) (unknown) Severe left hip (units (unknown) date) osteoarthritis, unknown) adequate stability (unknown) (no (unknown) (unknown) Signed By: (units (unk nown) date) unknown) (unknown) (no (unknown) (unknown) Talavera and nephew (units (unknown) date) size 6 standard unknown) offset anthology, 56 mm R3 cup, neutral poly (unknown) (no (unknown) (unknown) Smoking Status: (units (unknown) date) Never smoker unknown) (unknown) (no (unknown) (unknown) Social History (units (unknown) date) (Reviewed 08/13/22 unknown) @ 07:46 by Natasha Talavera MD) (unknown) (no (unknown) (unknown) Specimen(s): none (units (unknown) date) sent unknown) (unknown) (no (unknown) (unknown) Stand Alone Forms: (units (unknown) date) Patient Portal/API unknown) (unknown) (no (unknown) (unknown) Surgeon: Natasha Caceres (units (unknown) date) Ilan unknown) (unknown) (no (unknown) (unknown) Surgical History (units (unknown) date) (Reviewed 08/13/22 unknown) @ 07:46 by Natasha Talavera MD) (unknown) (no (unknown) (unknown) Temperature 98.5 F (units (unknown) date) 97.7 F unknown) (unknown) (no (unknown) (unknown) The patient has (units (unknown) date) had progressively unknown) worsening left hip pain with radiographic (unknown) (no (unknown) (unknown) Time Patient Seen: (units (unknown) date) 07:01 unknown) (unknown) (no (unknown) (unknown) Time of procedure: (units (unknown) date) 07:55 unknown) (unknown) (no (unknown) (unknown) Tingling of both (units (unknown) date) feet unknown) (unknown) (no (unknown) (unknown) VTE (units (unkno wn) date) unknown) (unknown) (no (unknown) (unknown) Visit (units (unkno wn) date) Report/Discharge unknown) Packet (unknown) (no (unknown) (unknown) Vital Signs (units (un known) date) unknown) (unknown) (no (unknown) (unknown) [Embedded Image (units (unknown) date) Not Available] unknown) (unknown) (no (unknown) (unknown) acetaminophen (units ( unknown) date) [Tylenol Extra unknown) Strength] 500 mg Tablet (unknown) (no (unknown) (unknown) alcohol intake: (units (unknown) date) never unknown) (unknown) (no (unknown) (unknown) alternatives to (units (unknown) date) surgery were unknown) discussed with the patient prior to proceeding. (unknown) (no (unknown) (unknown) and , as well (units (unknown) date) as the potential unknown) need for eventual revision of the (unknown) (no (unknown) (unknown) celecoxib 200 mg (units (unknown) date) Capsule unknown) (unknown) (no (unknown) (unknown) changes consistent (units (unknown) date) with arthritis. unknown) Non-operative management has failed and the (unknown) (no (unknown) (unknown) household members: (units (unknown) date) spouse unknown) (unknown) (no (unknown) (unknown) hydroxyzine (units (un known) date) pamoate 25 mg unknown) Capsule (unknown) (no (unknown) (unknown) length discrepancy, (units (unknown) date) dislocation, unknown) stiffness, infection, nerve damage, deep venous (unknown) (no (unknown) (unknown) liner, one 6.5 mm (units (unknown) date) screw, 36 by-3 unknown) Oxinium head (unknown) (no (unknown) (unknown) patient has (units (un known) date) requested total hip unknown) replacement. The risks, benefits and (unknown) (no (unknown) (unknown) prosthetic. (units (un known) date) unknown) (unknown) (no (unknown) (unknown) rosuvastatin 5 mg (units (unknown) date) Tablet unknown) (unknown) (no (unknown) (unknown) thrombosis, (units (un known) date) pulmonary embolism, unknown) stroke, coma, heart attack, permanent paralysis Result panel 97 (unknown) (no (unknown) (unknown) (no value) (units (unk nown) date) unknown) (unknown) (no (unknown) (unknown) (past 8 hours): (units (unknown) date) unknown) (unknown) (no (unknown) (unknown) [id number] (units (unkno wn) date) unknown) (unknown) (no (unknown) (unknown) 08/13/22 08/14/22 (units (unknown) date) unknown) (unknown) (no (unknown) (unknown) 08/13/22 06:00 (units (unknown) date) unknown) (unknown) (no (unknown) (unknown) 08/13/22 10:55 (units (unknown) date) unknown) (unknown) (no (unknown) (unknown) 08/13/22 (units (unkno wn) date) unknown) (unknown) (no (unknown) (unknown) 08/14/22 06:08 (units (unknown) date) unknown) (unknown) (no (unknown) (unknown) 05:32 (units (unkno wn) date) unknown) (unknown) (no (unknown) (unknown) 07:24 06:08 (units (un known) date) unknown) (unknown) (no (unknown) (unknown) 200 mg PO DAILY (units (unknown) date) unknown) (unknown) (no (unknown) (unknown) 23:20 08/14/22 (units (unknown) date) unknown) (unknown) (no (unknown) (unknown) 25 mg PO Q6HR PRN (units (unknown) date) (Reason: Spasms) unknown) Qty: 60 0RF (unknown) (no (unknown) (unknown) 5 mg PO BEDTIME (units (unknown) date) unknown) (unknown) (no (unknown) (unknown) 500 mg PO Q4H MDD (units (unknown) date) 2000 PRN (Reason: unknown) Breakthrough Pain, Moderate) (unknown) (no (unknown) (unknown) Age/Sex: 56 / M (units (unknown) date) unknown) (unknown) (no (unknown) (unknown) Anesthesia Type: (units (unknown) date) General and Spinal unknown) (unknown) (no (unknown) (unknown) Circuit Design Engineer: Raleigh Hammer (units (unknown) date) Rafal unknown) (unknown) (no (unknown) (unknown) Attending (units (unkn own) date) Provider: unknown) Natasha Talavera (unknown) (no (unknown) (unknown) Blood Pressure (units (unknown) date) 124/59 L 127/57 L unknown) (unknown) (no (unknown) (unknown) Blood products (units (unknown) date) transfused: none unknown) (unknown) (no (unknown) (unknown) Borderline (units (unk nown) date) hypertension unknown) (unknown) (no (unknown) (unknown) COVID-19 virus (units (unknown) date) infection (2020) unknown) (unknown) (no (unknown) (unknown) Cataract (units (unkno wn) date) unknown) (unknown) (no (unknown) (unknown) Chief complaint: (units (unknown) date) Left CARO *OPB* unknown) (unknown) (no (unknown) (unknown) Closure Type: (units ( unknown) date) primary unknown) (unknown) (no (unknown) (unknown) Comment: (units (unkno wn) date) unknown) (unknown) (no (unknown) (unknown) Consult to (units (unk nown) date) Anesthesiology unknown) Routine (unknown) (no (unknown) (unknown) Consult to (units (unk nown) date) Discharge Planning unknown) Routine (unknown) (no (unknown) (unknown) Consult to (units (unk nown) date) Physical Therapy unknown) Evaluate + Treat (unknown) (no (unknown) (unknown) Consulting (units (unk nown) date) Provider: unknown) Anesthesiologist (unknown) (no (unknown) (unknown) Consults: (units (unkn own) date) unknown) (unknown) (no (unknown) (unknown) Continued (units (unkn own) date) unknown) (unknown) (no (unknown) (unknown) : 1965 (units (unknown) date) Acct:[id number] unknown) (unknown) (no (unknown) (unknown) Date Patient Seen: (units (unknown) date) 08/14/22 unknown) (unknown) (no (unknown) (unknown) Date of Service: (units (unknown) date) 08/13/22 unknown) (unknown) (no (unknown) (unknown) Date of procedure: (units (unknown) date) 08/13/22 unknown) (unknown) (no (unknown) (unknown) Deep Vein (units (unkn own) date) Thrombosis/Pulmonar unknown) y Embolism Present on Admission: No (unknown) (no (unknown) (unknown) Discharge (Order); (units (unknown) date) Ordered 08/14/22 unknown) (unknown) (no (unknown) (unknown) Discharge Data (units (unknown) date) unknown) (unknown) (no (unknown) (unknown) Discharge Date: (units (unknown) date) 08/14/22 unknown) (unknown) (no (unknown) (unknown) Discharge (units (unkn own) date) Diagnosis: unknown) (unknown) (no (unknown) (unknown) Discharge Orders: (units (unknown) date) unknown) (unknown) (no (unknown) (unknown) Discharge Plan (units (unknown) date) unknown) (unknown) (no (unknown) (unknown) Discharge (units (unkn own) date) Providers unknown) (unknown) (no (unknown) (unknown) Discharge Summary (units (unknown) date) unknown) (unknown) (no (unknown) (unknown) Discharge orders + (units (unknown) date) Medications unknown) (unknown) (no (unknown) (unknown) Discharge (units (unkn own) date) provider: unknown) (unknown) (no (unknown) (unknown) Diverticulitis (units (unknown) date) () unknown) (unknown) (no (unknown) (unknown) Jose Alfredo Dhaliwal MD (units (unknown) date) [Primary Care unknown) Provider] (unknown) (no (unknown) (unknown) Elevated WBCs (units ( unknown) date) () unknown) (unknown) (no (unknown) (unknown) Estimated Blood (units (unknown) date) Loss (mL): 250 unknown) (unknown) (no (unknown) (unknown) Exam (units (unkno wn) date) unknown) (unknown) (no (unknown) (unknown) Findings: (units (unkn own) date) unknown) (unknown) (no (unknown) (unknown) Follow (units (unkno wn) date) up/Referrals: unknown) (unknown) (no (unknown) (unknown) HLD (units (unkno wn) date) (hyperlipidemia) unknown) (unknown) (no (unknown) (unknown) Hct 39.2 L (units (unk nown) date) unknown) (unknown) (no (unknown) (unknown) Hgb 13.1 L (units (unk nown) date) unknown) (unknown) (no (unknown) (unknown) History of Present (units (unknown) date) Illness unknown) (unknown) (no (unknown) (unknown) History of (units (unk nown) date) colonoscopy unknown) (unknown) (no (unknown) (unknown) History of liver (units (unknown) date) biopsy () unknown) (unknown) (no (unknown) (unknown) 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 (03/31/19) (unknown) (no (unknown) (unknown) Hospital Course (units (unknown) date) unknown) (unknown) (no (unknown) (unknown) Indications: (units (u nknown) date) unknown) (unknown) (no (unknown) (unknown) [facility] (units (unknown) date) [address] unknown) [place] [id number] (unknown) (no (unknown) (unknown) Josselyn Parada PA-C (units (unknown) date) unknown) (unknown) (no (unknown) (unknown) Kidney stones (units ( unknown) date) unknown) (unknown) (no (unknown) (unknown) Laboratory Results (units (unknown) date) - last 24 hr unknown) (unknown) (no (unknown) (unknown) Labs (units (unkno wn) date) unknown) (unknown) (no (unknown) (unknown) Labs: (units (unkno wn) date) unknown) (unknown) (no (unknown) (unknown) Left hip (units (unkno wn) date) osteoarthritis, s/p unknown) left total hip arthroplasty (unknown) (no (unknown) (unknown) Left total hip (units (unknown) date) arthroplasty unknown) posterior approach (unknown) (no (unknown) (unknown) Jose Alfredo Dhaliwal MD (units (unknown) date) unknown) (unknown) (no (unknown) (unknown) Medical History (units (unknown) date) (Reviewed 08/13/22 unknown) @ 07:46 by Natasha Talavera MD) (unknown) (no (unknown) (unknown) Melanoma (-2016) (units (unknown) date) unknown) (unknown) (no (unknown) (unknown) Narrative: (units (unk nown) date) unknown) (unknown) (no (unknown) (unknown) New (units (unkno wn) date) unknown) (unknown) (no (unknown) (unknown) Objective (units (unkn own) date) unknown) (unknown) (no (unknown) (unknown) Operative (units (unkn own) date) Date/Time/Diagnoses unknown) (unknown) (no (unknown) (unknown) Operative Notes (units (unknown) date) unknown) (unknown) (no (unknown) (unknown) Ordered By: Josselyn (units (unknown) date) Beh unknown) (unknown) (no (unknown) (unknown) Osteoarthritis (units (unknown) date) unknown) (unknown) (no (unknown) (unknown) Oxygen Delivery (units (unknown) date) Method Nasal unknown) Cannula (unknown) (no (unknown) (unknown) Oxygen Flow Rate 0 (units (unknown) date) 0 unknown) (unknown) (no (unknown) (unknown) Oxygen Flow Rate 0 (units (unknown) date) unknown) (unknown) (no (unknown) (unknown) PFSH (units (unkno wn) date) unknown) (unknown) (no (unknown) (unknown) Patient (units (unkno wn) date) Disposition: Home unknown) (unknown) (no (unknown) (unknown) Patient: (units (unkno wn) date) Brendan Matthews unknown) MR#: [id number] (unknown) (no (unknown) (unknown) Physician (units (unkn own) date) Instructions: post unknown) op CARO protocol (unknown) (no (unknown) (unknown) Pneumonia (units (unkn own) date) unknown) (unknown) (no (unknown) (unknown) Post-op diagnosis: (units (unknown) date) same unknown) (unknown) (no (unknown) (unknown) Pre-op diagnosis: (units (unknown) date) Left hip unknown) osteoarthritis (unknown) (no (unknown) (unknown) Prescriptions: (units (unknown) date) unknown) (unknown) (no (unknown) (unknown) Primary Care (units (u nknown) date) Provider: unknown) Jose Alfredo Dhaliwal (unknown) (no (unknown) (unknown) Primary care (units (u nknown) date) physician: unknown) (unknown) (no (unknown) (unknown) Procedure + (units (un known) date) Clinicians unknown) (unknown) (no (unknown) (unknown) Procedure: (units (unk nown) date) unknown) (unknown) (no (unknown) (unknown) Prosthetic (units (unk n) date) devices, grafts, unknown) tissues, transplants, or devices: (unknown) (no (unknown) (unknown) Provider (units (unkno wn) date) unknown) (unknown) (no (unknown) (unknown) Provider: (units (unkn own) date) Josselyn Parada P.A-C unknown) (unknown) (no (unknown) (unknown) Pulse Oximetry 95 (units (unknown) date) 97 unknown) (unknown) (no (unknown) (unknown) Pulse Rate 74 68 (units (unknown) date) unknown) (unknown) (no (unknown) (unknown) Quality (units (unkno wn) date) unknown) (unknown) (no (unknown) (unknown) Reason for (units (unk n) date) consultation: unknown) Regional block for post operative pain control (unknown) (no (unknown) (unknown) Respiratory Rate (units (unknown) date) 19 18 unknown) (unknown) (no (unknown) (unknown) Risks discussed (units (unknown) date) included, but were unknown) not limited to, failure to relieve pain, leg (unknown) (no (unknown) (unknown) SARS-CoV-2 (PCR) (units (unknown) date) Negative unknown) (unknown) (no (unknown) (unknown) Same procedure as (units (unknown) date) scheduled: Yes unknown) (unknown) (no (unknown) (unknown) Severe left hip (units (unknown) date) osteoarthritis, unknown) adequate stability (unknown) (no (unknown) (unknown) Signed By: (units (unk n) date) unknown) (unknown) (no (unknown) (unknown) Talavera and nephew (units (unknown) date) size 6 standard unknown) offset anthology, 56 mm R3 cup, neutral poly (unknown) (no (unknown) (unknown) Smoking Status: (units (unknown) date) Never smoker unknown) (unknown) (no (unknown) (unknown) Social History (units (unknown) date) (Reviewed 08/13/22 unknown) @ 07:46 by Natasha Talavera MD) (unknown) (no (unknown) (unknown) Specimen(s): none (units (unknown) date) sent unknown) (unknown) (no (unknown) (unknown) Stand Alone Forms: (units (unknown) date) Patient Portal/API unknown) (unknown) (no (unknown) (unknown) Summary (units (unkno wn) date) unknown) (unknown) (no (unknown) (unknown) Surgeon: Natasha Caceres (units (unknown) date) Ilan unknown) (unknown) (no (unknown) (unknown) Surgical History (units (unknown) date) (Reviewed 08/13/22 unknown) @ 07:46 by Natasha Talavera MD) (unknown) (no (unknown) (unknown) Temperature 98.5 F (units (unknown) date) 97.7 F unknown) (unknown) (no (unknown) (unknown) The patient has (units (unknown) date) had progressively unknown) worsening left hip pain with radiographic (unknown) (no (unknown) (unknown) Time Patient Seen: (units (unknown) date) 07:01 unknown) (unknown) (no (unknown) (unknown) Time of procedure: (units (unknown) date) 07:55 unknown) (unknown) (no (unknown) (unknown) Tingling of both (units (unknown) date) feet unknown) (unknown) (no (unknown) (unknown) VTE (units (unkno wn) date) unknown) (unknown) (no (unknown) (unknown) Visit (units (unkno wn) date) Report/Discharge unknown) Packet (unknown) (no (unknown) (unknown) Vital Signs (units (un known) date) unknown) (unknown) (no (unknown) (unknown) [Embedded Image (units (unknown) date) Not Available] unknown) (unknown) (no (unknown) (unknown) acetaminophen (units ( unknown) date) [Tylenol Extra unknown) Strength] 500 mg Tablet (unknown) (no (unknown) (unknown) alcohol intake: (units (unknown) date) never unknown) (unknown) (no (unknown) (unknown) alternatives to (units (unknown) date) surgery were unknown) discussed with the patient prior to proceeding. (unknown) (no (unknown) (unknown) and , as well (units (unknown) date) as the potential unknown) need for eventual revision of the (unknown) (no (unknown) (unknown) celecoxib 200 mg (units (unknown) date) Capsule unknown) (unknown) (no (unknown) (unknown) changes consistent (units (unknown) date) with arthritis. unknown) Non-operative management has failed and the (unknown) (no (unknown) (unknown) household members: (units (unknown) date) spouse unknown) (unknown) (no (unknown) (unknown) hydroxyzine (units (un known) date) pamoate 25 mg unknown) Capsule (unknown) (no (unknown) (unknown) length discrepancy, (units (unknown) date) dislocation, unknown) stiffness, infection, nerve damage, deep venous (unknown) (no (unknown) (unknown) liner, one 6.5 mm (units (unknown) date) screw, 36 by-3 unknown) Oxinium head (unknown) (no (unknown) (unknown) patient has (units (un known) date) requested total hip unknown) replacement. The risks, benefits and (unknown) (no (unknown) (unknown) prosthetic. (units (un known) date) unknown) (unknown) (no (unknown) (unknown) rosuvastatin 5 mg (units (unknown) date) Tablet unknown) (unknown) (no (unknown) (unknown) thrombosis, (units (un known) date) pulmonary embolism, unknown) stroke, coma, heart attack, permanent paralysis Result panel 98 (unknown) (no (unknown) (unknown) (no value) (units (unk nown) date) unknown) (unknown) (no (unknown) (unknown) (past 8 hours): (units (unknown) date) unknown) (unknown) (no (unknown) (unknown) [id number] (units (unkno wn) date) unknown) (unknown) (no (unknown) (unknown) 08/13/22 08/14/22 (units (unknown) date) unknown) (unknown) (no (unknown) (unknown) 08/13/22 06:00 (units (unknown) date) unknown) (unknown) (no (unknown) (unknown) 08/13/22 10:55 (units (unknown) date) unknown) (unknown) (no (unknown) (unknown) 08/13/22 (units (unkno wn) date) unknown) (unknown) (no (unknown) (unknown) 08/14/22 06:08 (units (unknown) date) unknown) (unknown) (no (unknown) (unknown) 05:32 (units (unkno wn) date) unknown) (unknown) (no (unknown) (unknown) 07:24 06:08 (units (un known) date) unknown) (unknown) (no (unknown) (unknown) 200 mg PO DAILY (units (unknown) date) unknown) (unknown) (no (unknown) (unknown) 23:20 08/14/22 (units (unknown) date) unknown) (unknown) (no (unknown) (unknown) 25 mg PO Q6HR PRN (units (unknown) date) (Reason: Spasms) unknown) Qty: 60 0RF (unknown) (no (unknown) (unknown) 4/5 hip flexors, (units (unknown) date) quadriceps, unknown) hamstrings on left; 5/5 DF, PF, EHL. Sensation to (unknown) (no (unknown) (unknown) 5 mg PO BEDTIME (units (unknown) date) unknown) (unknown) (no (unknown) (unknown) 500 mg PO Q4H MDD (units (unknown) date) 2000 PRN (Reason: unknown) Breakthrough Pain, Moderate) (unknown) (no (unknown) (unknown) Age/Sex: 56 / M (units (unknown) date) unknown) (unknown) (no (unknown) (unknown) Anesthesia Type: (units (unknown) date) General and Spinal unknown) (unknown) (no (unknown) (unknown) Circuit Design Engineer: Raleigh Hammer (units (unknown) date) Rafal unknown) (unknown) (no (unknown) (unknown) Attending (units (unkn own) date) Provider: unknown) Natasha Talavera (unknown) (no (unknown) (unknown) Blood Pressure (units (unknown) date) 124/59 L 127/57 L unknown) (unknown) (no (unknown) (unknown) Blood products (units (unknown) date) transfused: none unknown) (unknown) (no (unknown) (unknown) Borderline (units (unk nown) date) hypertension unknown) (unknown) (no (unknown) (unknown) COVID-19 virus (units (unknown) date) infection (2020) unknown) (unknown) (no (unknown) (unknown) Cataract (units (unkno wn) date) unknown) (unknown) (no (unknown) (unknown) Chief complaint: (units (unknown) date) Left CARO *OPB* unknown) (unknown) (no (unknown) (unknown) Closure Type: (units ( unknown) date) primary unknown) (unknown) (no (unknown) (unknown) Comment: (units (unkno wn) date) unknown) (unknown) (no (unknown) (unknown) Consult to (units (unk nown) date) Anesthesiology unknown) Routine (unknown) (no (unknown) (unknown) Consult to (units (unk nown) date) Discharge Planning unknown) Routine (unknown) (no (unknown) (unknown) Consult to (units (unk nown) date) Physical Therapy unknown) Evaluate + Treat (unknown) (no (unknown) (unknown) Consulting (units (unk nown) date) Provider: unknown) Anesthesiologist (unknown) (no (unknown) (unknown) Consults: (units (unkn own) date) unknown) (unknown) (no (unknown) (unknown) Continued (units (unkn own) date) unknown) (unknown) (no (unknown) (unknown) : 1965 (units (unknown) date) Acct:[id number] unknown) (unknown) (no (unknown) (unknown) Date Patient Seen: (units (unknown) date) 08/14/22 unknown) (unknown) (no (unknown) (unknown) Date of Service: (units (unknown) date) 08/13/22 unknown) (unknown) (no (unknown) (unknown) Date of procedure: (units (unknown) date) 08/13/22 unknown) (unknown) (no (unknown) (unknown) Deep Vein (units (unkn own) date) Thrombosis/Pulmonar unknown) y Embolism Present on Admission: No (unknown) (no (unknown) (unknown) Discharge (Order); (units (unknown) date) Ordered 08/14/22 unknown) (unknown) (no (unknown) (unknown) Discharge Data (units (unknown) date) unknown) (unknown) (no (unknown) (unknown) Discharge Date: (units (unknown) date) 08/14/22 unknown) (unknown) (no (unknown) (unknown) Discharge (units (unkn own) date) Diagnosis: unknown) (unknown) (no (unknown) (unknown) Discharge Orders: (units (unknown) date) unknown) (unknown) (no (unknown) (unknown) Discharge Plan (units (unknown) date) unknown) (unknown) (no (unknown) (unknown) Discharge (units (unkn own) date) Providers unknown) (unknown) (no (unknown) (unknown) Discharge Summary (units (unknown) date) unknown) (unknown) (no (unknown) (unknown) Discharge orders + (units (unknown) date) Medications unknown) (unknown) (no (unknown) (unknown) Discharge (units (unkn own) date) provider: unknown) (unknown) (no (unknown) (unknown) Diverticulitis (units (unknown) date) () unknown) (unknown) (no (unknown) (unknown) Jose Alfredo Dhaliwal MD (units (unknown) date) [Primary Care unknown) Provider] (unknown) (no (unknown) (unknown) Elevated WBCs (units ( unknown) date) () unknown) (unknown) (no (unknown) (unknown) Estimated Blood (units (unknown) date) Loss (mL): 250 unknown) (unknown) (no (unknown) (unknown) Exam (units (unkno wn) date) unknown) (unknown) (no (unknown) (unknown) Findings: (units (unkn own) date) unknown) (unknown) (no (unknown) (unknown) Follow (units (unkno wn) date) up/Referrals: unknown) (unknown) (no (unknown) (unknown) HLD (units (unkno wn) date) (hyperlipidemia) unknown) (unknown) (no (unknown) (unknown) Hct 39.2 L (units (unk nown) date) unknown) (unknown) (no (unknown) (unknown) Hgb 13.1 L (units (unk nown) date) unknown) (unknown) (no (unknown) (unknown) History of Present (units (unknown) date) Illness unknown) (unknown) (no (unknown) (unknown) History of (units (unk nown) date) colonoscopy unknown) (unknown) (no (unknown) (unknown) History of liver (units (unknown) date) biopsy (-1995) unknown) (unknown) (no (unknown) (unknown) 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 (03/31/19) (unknown) (no (unknown) (unknown) Hospital Course (units (unknown) date) unknown) (unknown) (no (unknown) (unknown) Hospital Course: (units (unknown) date) unknown) (unknown) (no (unknown) (unknown) Indications: (units (u nknown) date) unknown) (unknown) (no (unknown) (unknown) [facility] (units (unknown) date) [address] unknown) [place] [id number] (unknown) (no (unknown) (unknown) Josselyn Parada PA-C (units (unknown) date) unknown) (unknown) (no (unknown) (unknown) Kidney stones (units ( unknown) date) unknown) (unknown) (no (unknown) (unknown) Laboratory Results (units (unknown) date) - last 24 hr unknown) (unknown) (no (unknown) (unknown) Labs (units (unkno wn) date) unknown) (unknown) (no (unknown) (unknown) Labs: (units (unkno wn) date) unknown) (unknown) (no (unknown) (unknown) Left hip (units (unkno wn) date) osteoarthritis, s/p unknown) left total hip arthroplasty (unknown) (no (unknown) (unknown) Left total hip (units (unknown) date) arthroplasty unknown) posterior approach (unknown) (no (unknown) (unknown) Jose Alfredo Dhaliwal MD (units (unknown) date) unknown) (unknown) (no (unknown) (unknown) Medical History (units (unknown) date) (Reviewed 08/13/22 unknown) @ 07:46 by Natasha Talavera MD) (unknown) (no (unknown) (unknown) Melanoma (-2017) (units (unknown) date) unknown) (unknown) (no (unknown) (unknown) Narrative: (units (unk nown) date) unknown) (unknown) (no (unknown) (unknown) New (units (unkno wn) date) unknown) (unknown) (no (unknown) (unknown) Objective (units (unkn own) date) unknown) (unknown) (no (unknown) (unknown) Operative (units (unkn own) date) Date/Time/Diagnoses unknown) (unknown) (no (unknown) (unknown) Operative Notes (units (unknown) date) unknown) (unknown) (no (unknown) (unknown) Ordered By: Josselyn (units (unknown) date) Beh unknown) (unknown) (no (unknown) (unknown) Osteoarthritis (units (unknown) date) unknown) (unknown) (no (unknown) (unknown) Oxygen Delivery (units (unknown) date) Method Nasal unknown) Cannula (unknown) (no (unknown) (unknown) Oxygen Flow Rate 0 (units (unknown) date) 0 unknown) (unknown) (no (unknown) (unknown) Oxygen Flow Rate 0 (units (unknown) date) unknown) (unknown) (no (unknown) (unknown) PFSH (units (unkno wn) date) unknown) (unknown) (no (unknown) (unknown) Patient (units (unkno wn) date) Disposition: Home unknown) (unknown) (no (unknown) (unknown) Patient: (units (unkno wn) date) Brendan Matthews unknown) MR#: [id number] (unknown) (no (unknown) (unknown) Physician (units (unkn own) date) Instructions: post unknown) op CARO protocol (unknown) (no (unknown) (unknown) Pneumonia (units (unkn own) date) unknown) (unknown) (no (unknown) (unknown) Post-op diagnosis: (units (unknown) date) same unknown) (unknown) (no (unknown) (unknown) Pre-op diagnosis: (units (unknown) date) Left hip unknown) osteoarthritis (unknown) (no (unknown) (unknown) Prescriptions: (units (unknown) date) unknown) (unknown) (no (unknown) (unknown) Primary Care (units (u nknown) date) Provider: unknown) Jose Alfredo Dhaliwal (unknown) (no (unknown) (unknown) Primary care (units (u nknown) date) physician: unknown) (unknown) (no (unknown) (unknown) Procedure + (units (un known) date) Clinicians unknown) (unknown) (no (unknown) (unknown) Procedure: (units (unk nown) date) unknown) (unknown) (no (unknown) (unknown) Prosthetic (units (unk n) date) devices, grafts, unknown) tissues, transplants, or devices: (unknown) (no (unknown) (unknown) Provider (units (unkno wn) date) unknown) (unknown) (no (unknown) (unknown) Provider: (units (unkn own) date) Josselyn Parada P.A-C unknown) (unknown) (no (unknown) (unknown) Pulse Oximetry 95 (units (unknown) date) 97 unknown) (unknown) (no (unknown) (unknown) Pulse Rate 74 68 (units (unknown) date) unknown) (unknown) (no (unknown) (unknown) Quality (units (unkno wn) date) unknown) (unknown) (no (unknown) (unknown) Reason for (units (unk nown) date) consultation: unknown) Regional block for post operative pain control (unknown) (no (unknown) (unknown) Respiratory Rate (units (unknown) date) 19 18 unknown) (unknown) (no (unknown) (unknown) Risks discussed (units (unknown) date) included, but were unknown) not limited to, failure to relieve pain, leg (unknown) (no (unknown) (unknown) SARS-CoV-2 (PCR) (units (unknown) date) Negative unknown) (unknown) (no (unknown) (unknown) Same procedure as (units (unknown) date) scheduled: Yes unknown) (unknown) (no (unknown) (unknown) Severe left hip (units (unknown) date) osteoarthritis, unknown) adequate stability (unknown) (no (unknown) (unknown) Signed By: (units (unk n) date) unknown) (unknown) (no (unknown) (unknown) Ilan and nephew (units (unknown) date) size 6 standard unknown) offset anthology, 56 mm R3 cup, neutral poly (unknown) (no (unknown) (unknown) Smoking Status: (units (unknown) date) Never smoker unknown) (unknown) (no (unknown) (unknown) Social History (units (unknown) date) (Reviewed 08/13/22 unknown) @ 07:46 by Natasha Talavera MD) (unknown) (no (unknown) (unknown) Specimen(s): none (units (unknown) date) sent unknown) (unknown) (no (unknown) (unknown) Stand Alone Forms: (units (unknown) date) Patient Portal/API unknown) (unknown) (no (unknown) (unknown) Summary (units (unkno wn) date) unknown) (unknown) (no (unknown) (unknown) Surgeon: Natasha Caceres (units (unknown) date) Ilan unknown) (unknown) (no (unknown) (unknown) Surgical History (units (unknown) date) (Reviewed 08/13/22 unknown) @ 07:46 by Natasha Talavera MD) (unknown) (no (unknown) (unknown) Temperature 98.5 F (units (unknown) date) 97.7 F unknown) (unknown) (no (unknown) (unknown) The patient has (units (unknown) date) had progressively unknown) worsening left hip pain with radiographic (unknown) (no (unknown) (unknown) Time Patient Seen: (units (unknown) date) 07:01 unknown) (unknown) (no (unknown) (unknown) Time of procedure: (units (unknown) date) 07:55 unknown) (unknown) (no (unknown) (unknown) Tingling of both (units (unknown) date) feet unknown) (unknown) (no (unknown) (unknown) VTE (units (unkno wn) date) unknown) (unknown) (no (unknown) (unknown) Visit (units (unkno wn) date) Report/Discharge unknown) Packet (unknown) (no (unknown) (unknown) Vital Signs (units (un known) date) unknown) (unknown) (no (unknown) (unknown) [Embedded Image (units (unknown) date) Not Available] unknown) (unknown) (no (unknown) (unknown) acetaminophen (units ( unknown) date) [Tylenol Extra unknown) Strength] 500 mg Tablet (unknown) (no (unknown) (unknown) alcohol intake: (units (unknown) date) never unknown) (unknown) (no (unknown) (unknown) alternatives to (units (unknown) date) surgery were unknown) discussed with the patient prior to proceeding. (unknown) (no (unknown) (unknown) and , as well (units (unknown) date) as the potential unknown) need for eventual revision of the (unknown) (no (unknown) (unknown) celecoxib 200 mg (units (unknown) date) Capsule unknown) (unknown) (no (unknown) (unknown) changes consistent (units (unknown) date) with arthritis. unknown) Non-operative management has failed and the (unknown) (no (unknown) (unknown) household members: (units (unknown) date) spouse unknown) (unknown) (no (unknown) (unknown) hydroxyzine (units (un known) date) pamoate 25 mg unknown) Capsule (unknown) (no (unknown) (unknown) length discrepancy, (units (unknown) date) dislocation, unknown) stiffness, infection, nerve damage, deep venous (unknown) (no (unknown) (unknown) light touch intact (units (unknown) date) throughout LLE. unknown) Calves soft, compressible, nontender and (unknown) (no (unknown) (unknown) liner, one 6.5 mm (units (unknown) date) screw, 36 by-3 unknown) Oxinium head (unknown) (no (unknown) (unknown) patient has (units (un known) date) requested total hip unknown) replacement. The risks, benefits and (unknown) (no (unknown) (unknown) prosthetic. (units (un known) date) unknown) (unknown) (no (unknown) (unknown) rosuvastatin 5 mg (units (unknown) date) Tablet unknown) (unknown) (no (unknown) (unknown) thrombosis, (units (un known) date) pulmonary embolism, unknown) stroke, coma, heart attack, permanent paralysis (unknown) (no (unknown) (unknown) without palp (units (u nknown) date) unknown) Result panel 99 (unknown) (no (unknown) (unknown) (no value) (units (unk nown) date) unknown) (unknown) (no (unknown) (unknown) (past 8 hours): (units (unknown) date) unknown) (unknown) (no (unknown) (unknown) [id number] (units (unkno wn) date) unknown) (unknown) (no (unknown) (unknown) 08/13/22 08/14/22 (units (unknown) date) unknown) (unknown) (no (unknown) (unknown) 08/13/22 06:00 (units (unknown) date) unknown) (unknown) (no (unknown) (unknown) 08/13/22 10:55 (units (unknown) date) unknown) (unknown) (no (unknown) (unknown) 08/13/22 (units (unkno wn) date) unknown) (unknown) (no (unknown) (unknown) 08/14/22 06:08 (units (unknown) date) unknown) (unknown) (no (unknown) (unknown) 08/14/22 0744 (units ( unknown) date) unknown) (unknown) (no (unknown) (unknown) 05:32 (units (unkno wn) date) unknown) (unknown) (no (unknown) (unknown) 07:24 06:08 (units (un known) date) unknown) (unknown) (no (unknown) (unknown) 200 mg PO DAILY (units (unknown) date) unknown) (unknown) (no (unknown) (unknown) 23:20 08/14/22 (units (unknown) date) unknown) (unknown) (no (unknown) (unknown) 25 mg PO Q6HR PRN (units (unknown) date) (Reason: Spasms) unknown) Qty: 60 0RF (unknown) (no (unknown) (unknown) 4/5 hip flexors, (units (unknown) date) quadriceps, unknown) hamstrings on left; 5/5 DF, PF, EHL. Sensation to (unknown) (no (unknown) (unknown) 5 mg PO BEDTIME (units (unknown) date) unknown) (unknown) (no (unknown) (unknown) 500 mg PO Q4H MDD (units (unknown) date) 2000 PRN (Reason: unknown) Breakthrough Pain, Moderate) (unknown) (no (unknown) (unknown) Activity: (units (unkn own) date) Weightbearing as unknown) tolerated on left leg. Posterior hip precautions. (unknown) (no (unknown) (unknown) Age/Sex: 56 / M (units (unknown) date) unknown) (unknown) (no (unknown) (unknown) Anesthesia Type: (units (unknown) date) General and Spinal unknown) (unknown) (no (unknown) (unknown) Assessment and (units (unknown) date) Plan unknown) (unknown) (no (unknown) (unknown) Assessment: (units (un known) date) unknown) (unknown) (no (unknown) (unknown) Circuit Design Engineer: Raleigh Hammer (units (unknown) date) Rafal unknown) (unknown) (no (unknown) (unknown) Attending (units (unkn own) date) Provider: unknown) Natasha Talavera (unknown) (no (unknown) (unknown) Blood Pressure (units (unknown) date) 124/59 L 127/57 L unknown) (unknown) (no (unknown) (unknown) Blood products (units (unknown) date) transfused: none unknown) (unknown) (no (unknown) (unknown) Borderline (units (unk nown) date) hypertension unknown) (unknown) (no (unknown) (unknown) COVID-19 virus (units (unknown) date) infection (2020) unknown) (unknown) (no (unknown) (unknown) Cataract (units (unkno wn) date) unknown) (unknown) (no (unknown) (unknown) Chief complaint: (units (unknown) date) Left CARO *OPB* unknown) (unknown) (no (unknown) (unknown) Closure Type: (units ( unknown) date) primary unknown) (unknown) (no (unknown) (unknown) Comment: (units (unkno wn) date) unknown) (unknown) (no (unknown) (unknown) Consult to (units (unk nown) date) Anesthesiology unknown) Routine (unknown) (no (unknown) (unknown) Consult to (units (unk nown) date) Discharge Planning unknown) Routine (unknown) (no (unknown) (unknown) Consult to (units (unk nown) date) Physical Therapy unknown) Evaluate + Treat (unknown) (no (unknown) (unknown) Consulting (units (unk nown) date) Provider: unknown) Anesthesiologist (unknown) (no (unknown) (unknown) Consults: (units (unkn own) date) unknown) (unknown) (no (unknown) (unknown) Continued (units (unkn own) date) unknown) (unknown) (no (unknown) (unknown) : 1965 (units (unknown) date) Acct:[id number] unknown) (unknown) (no (unknown) (unknown) Date Patient Seen: (units (unknown) date) 08/14/22 unknown) (unknown) (no (unknown) (unknown) Date of Service: (units (unknown) date) 08/13/22 unknown) (unknown) (no (unknown) (unknown) Date of procedure: (units (unknown) date) 08/13/22 unknown) (unknown) (no (unknown) (unknown) Deep Vein (units (unkn own) date) Thrombosis/Pulmonar unknown) y Embolism Present on Admission: No (unknown) (no (unknown) (unknown) Diet/Activity/Jaylyn (units (unknown) date) tments unknown) (unknown) (no (unknown) (unknown) Diet: Diet as (units ( unknown) date) Tolerated unknown) (unknown) (no (unknown) (unknown) Discharge (Order); (units (unknown) date) Ordered 08/14/22 unknown) (unknown) (no (unknown) (unknown) Discharge (units (unkn own) date) Assessment + Plan unknown) (unknown) (no (unknown) (unknown) Discharge Data (units (unknown) date) unknown) (unknown) (no (unknown) (unknown) Discharge Date: (units (unknown) date) 08/14/22 unknown) (unknown) (no (unknown) (unknown) Discharge (units (unkn own) date) Diagnosis: unknown) (unknown) (no (unknown) (unknown) Discharge Orders: (units (unknown) date) unknown) (unknown) (no (unknown) (unknown) Discharge Plan (units (unknown) date) unknown) (unknown) (no (unknown) (unknown) Discharge (units (unkn own) date) Providers unknown) (unknown) (no (unknown) (unknown) Discharge Summary (units (unknown) date) unknown) (unknown) (no (unknown) (unknown) Discharge home (units (unknown) date) after PT if PT unknown) feels he is safe and stable. ASA 81 mg BID x 6 (unknown) (no (unknown) (unknown) Discharge orders + (units (unknown) date) Medications unknown) (unknown) (no (unknown) (unknown) Discharge (units (unkn own) date) provider: unknown) (unknown) (no (unknown) (unknown) Diverticulitis (units (unknown) date) (-2016) unknown) (unknown) (no (unknown) (unknown) Dressing: September (units ( unknown) date) shower. Leave unknown) Aquacel dressing in place until follow up in (unknown) (no (unknown) (unknown) Jose Alfredo Dhaliwal MD (units (unknown) date) [Primary Care unknown) Provider] (unknown) (no (unknown) (unknown) Elevated WBCs (units ( unknown) date) () unknown) (unknown) (no (unknown) (unknown) Estimated Blood (units (unknown) date) Loss (mL): 250 unknown) (unknown) (no (unknown) (unknown) Exam Narrative: (units (unknown) date) unknown) (unknown) (no (unknown) (unknown) Exam (units (unkno wn) date) unknown) (unknown) (no (unknown) (unknown) Findings: (units (unkn own) date) unknown) (unknown) (no (unknown) (unknown) Follow (units (unkno wn) date) up/Referrals: unknown) (unknown) (no (unknown) (unknown) HLD (units (unkno wn) date) (hyperlipidemia) unknown) (unknown) (no (unknown) (unknown) Hct 39.2 L (units (unk nown) date) unknown) (unknown) (no (unknown) (unknown) Hgb 13.1 L (units (unk nown) date) unknown) (unknown) (no (unknown) (unknown) History of Present (units (unknown) date) Illness unknown) (unknown) (no (unknown) (unknown) History of (units (unk nown) date) colonoscopy unknown) (unknown) (no (unknown) (unknown) History of liver (units (unknown) date) biopsy () unknown) (unknown) (no (unknown) (unknown) 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 (03/31/19) (unknown) (no (unknown) (unknown) Hospital Course (units (unknown) date) unknown) (unknown) (no (unknown) (unknown) Hospital Course: (units (unknown) date) unknown) (unknown) (no (unknown) (unknown) Indications: (units (u nknown) date) unknown) (unknown) (no (unknown) (unknown) Instructions: DI (units (unknown) date) for Hip Replacement unknown) (unknown) (no (unknown) (unknown) [facility] (units (unknown) date) [address] unknown) [place] [id number] (unknown) (no (unknown) (unknown) Josselyn Parada PA-C (units (unknown) date) unknown) (unknown) (no (unknown) (unknown) Kidney stones (units ( unknown) date) unknown) (unknown) (no (unknown) (unknown) Laboratory Results (units (unknown) date) - last 24 hr unknown) (unknown) (no (unknown) (unknown) Labs (units (unkno wn) date) unknown) (unknown) (no (unknown) (unknown) Labs: (units (unkno wn) date) unknown) (unknown) (no (unknown) (unknown) Left hip (units (unkno wn) date) osteoarthritis, s/p unknown) left total hip arthroplasty (unknown) (no (unknown) (unknown) Left hip (units (unkno wn) date) osteoarthritis, s/p unknown) left total hip arthroplasty. (unknown) (no (unknown) (unknown) Left total hip (units (unknown) date) arthroplasty unknown) posterior approach (unknown) (no (unknown) (unknown) BETINA Schreiber, on (units (unknown) date) 08/23/2022 @ 10:30 unknown) am at [facility] (unknown) (no (unknown) (unknown) Jose Alfredo Dhaliwal MD (units (unknown) date) unknown) (unknown) (no (unknown) (unknown) Medical History (units (unknown) date) (Reviewed 08/13/22 unknown) @ 07:46 by Natasha Talavera MD) (unknown) (no (unknown) (unknown) Melanoma (-2017) (units (unknown) date) unknown) (unknown) (no (unknown) (unknown) Mr Matthews's (units ( unknown) date) hospital course was unknown) unremarkable. On POD# 1 he was feeling well (unknown) (no (unknown) (unknown) Narrative (units (unkn own) date) unknown) (unknown) (no (unknown) (unknown) Narrative: (units (unk nown) date) unknown) (unknown) (no (unknown) (unknown) New (units (unkno wn) date) unknown) (unknown) (no (unknown) (unknown) Objective (units (unkn own) date) unknown) (unknown) (no (unknown) (unknown) Operative (units (unkn own) date) Date/Time/Diagnoses unknown) (unknown) (no (unknown) (unknown) Operative Notes (units (unknown) date) unknown) (unknown) (no (unknown) (unknown) Ordered By: Josselyn (units (unknown) date) Beh unknown) (unknown) (no (unknown) (unknown) Osteoarthritis (units (unknown) date) unknown) (unknown) (no (unknown) (unknown) Oxygen Delivery (units (unknown) date) Method Nasal unknown) Cannula (unknown) (no (unknown) (unknown) Oxygen Flow Rate 0 (units (unknown) date) 0 unknown) (unknown) (no (unknown) (unknown) Oxygen Flow Rate 0 (units (unknown) date) unknown) (unknown) (no (unknown) (unknown) PFSH (units (unkno wn) date) unknown) (unknown) (no (unknown) (unknown) Patient (units (unkno wn) date) Disposition: Home unknown) (unknown) (no (unknown) (unknown) Patient: (units (unkno wn) date) Brendan Matthews unknown) MR#: [id number] (unknown) (no (unknown) (unknown) Physician (units (unkn own) date) Instructions: post unknown) op CARO protocol (unknown) (no (unknown) (unknown) Plan of Treatment: (units (unknown) date) unknown) (unknown) (no (unknown) (unknown) Pneumonia (units (unkn own) date) unknown) (unknown) (no (unknown) (unknown) Post-op diagnosis: (units (unknown) date) same unknown) (unknown) (no (unknown) (unknown) Pre-op diagnosis: (units (unknown) date) Left hip unknown) osteoarthritis (unknown) (no (unknown) (unknown) Prescriptions: (units (unknown) date) unknown) (unknown) (no (unknown) (unknown) Primary Care (units (u nknown) date) Provider: unknown) Jose Alfredo Dhaliwal (unknown) (no (unknown) (unknown) Primary care (units (u nknown) date) physician: unknown) (unknown) (no (unknown) (unknown) Procedure + (units (un known) date) Clinicians unknown) (unknown) (no (unknown) (unknown) Procedure: (units (unk nown) date) unknown) (unknown) (no (unknown) (unknown) Prosthetic (units (unk n) date) devices, grafts, unknown) tissues, transplants, or devices: (unknown) (no (unknown) (unknown) Provider (units (unkno wn) date) unknown) (unknown) (no (unknown) (unknown) Provider: (units (unkn own) date) Josselyn Parada P.A-C unknown) (unknown) (no (unknown) (unknown) Pulse Oximetry 95 (units (unknown) date) 97 unknown) (unknown) (no (unknown) (unknown) Pulse Rate 74 68 (units (unknown) date) unknown) (unknown) (no (unknown) (unknown) Quality (units (unkno wn) date) unknown) (unknown) (no (unknown) (unknown) Reason for (units (unk nown) date) consultation: unknown) Regional block for post operative pain control (unknown) (no (unknown) (unknown) Report to your (units (unknown) date) healthcare provider unknown) any signs of infection, such as:: chills, (unknown) (no (unknown) (unknown) Respiratory Rate (units (unknown) date) 19 18 unknown) (unknown) (no (unknown) (unknown) Risks discussed (units (unknown) date) included, but were unknown) not limited to, failure to relieve pain, leg (unknown) (no (unknown) (unknown) SARS-CoV-2 (PCR) (units (unknown) date) Negative unknown) (unknown) (no (unknown) (unknown) Same procedure as (units (unknown) date) scheduled: Yes unknown) (unknown) (no (unknown) (unknown) Severe left hip (units (unknown) date) osteoarthritis, unknown) adequate stability (unknown) (no (unknown) (unknown) Signed (units (unkno wn) date) By:<Electronically unknown) signed by Josselyn Parada> (unknown) (no (unknown) (unknown) Skin/Wound/Dressin (units (unknown) date) g Care unknown) (unknown) (no (unknown) (unknown) Ilan and nephew (units (unknown) date) size 6 standard unknown) offset anthology, 56 mm R3 cup, neutral poly (unknown) (no (unknown) (unknown) Natasha Talavera MD (units (unknown) date) [Physician] - As unknown) previously scheduled (Follow up with Leyla (unknown) (no (unknown) (unknown) Smoking Status: (units (unknown) date) Never smoker unknown) (unknown) (no (unknown) (unknown) Social History (units (unknown) date) (Reviewed 08/13/22 unknown) @ 07:46 by Natasha Talavera MD) (unknown) (no (unknown) (unknown) Specimen(s): none (units (unknown) date) sent unknown) (unknown) (no (unknown) (unknown) Stand Alone Forms: (units (unknown) date) Patient Portal/API, unknown) Surgery Discharge (unknown) (no (unknown) (unknown) Summary (units (unkno wn) date) unknown) (unknown) (no (unknown) (unknown) Surgeon: Natasha Caceres (units (unknown) date) Ilan unknown) (unknown) (no (unknown) (unknown) Surgical History (units (unknown) date) (Reviewed 08/13/22 unknown) @ 07:46 by Natasha Talavera MD) (unknown) (no (unknown) (unknown) Temperature 98.5 F (units (unknown) date) 97.7 F unknown) (unknown) (no (unknown) (unknown) The patient has (units (unknown) date) had progressively unknown) worsening left hip pain with radiographic (unknown) (no (unknown) (unknown) Time Patient Seen: (units (unknown) date) 07:01 unknown) (unknown) (no (unknown) (unknown) Time of procedure: (units (unknown) date) 07:55 unknown) (unknown) (no (unknown) (unknown) Tingling of both (units (unknown) date) feet unknown) (unknown) (no (unknown) (unknown) VTE (units (unkno wn) date) unknown) (unknown) (no (unknown) (unknown) Visit (units (unkno wn) date) Report/Discharge unknown) Packet (unknown) (no (unknown) (unknown) Vital Signs (units (un known) date) unknown) (unknown) (no (unknown) (unknown) [Embedded Image (units (unknown) date) Not Available] unknown) (unknown) (no (unknown) (unknown) acetaminophen (units ( unknown) date) [Tylenol Extra unknown) Strength] 500 mg Tablet (unknown) (no (unknown) (unknown) alcohol intake: (units (unknown) date) never unknown) (unknown) (no (unknown) (unknown) alternatives to (units (unknown) date) surgery were unknown) discussed with the patient prior to proceeding. (unknown) (no (unknown) (unknown) and , as well (units (unknown) date) as the potential unknown) need for eventual revision of the (unknown) (no (unknown) (unknown) and wanted to go (units (unknown) date) home. He was eating unknown) and voiding without difficulty and his (unknown) (no (unknown) (unknown) as well. Outpt pt. (units (unknown) date) F/u in office in 2 unknown) weeks. (unknown) (no (unknown) (unknown) celecoxib 200 mg (units (unknown) date) Capsule unknown) (unknown) (no (unknown) (unknown) changes consistent (units (unknown) date) with arthritis. unknown) Non-operative management has failed and the (unknown) (no (unknown) (unknown) dressing becomes (units (unknown) date) saturated inside. unknown) (unknown) (no (unknown) (unknown) fever, night (units (u nknown) date) sweats, unusual unknown) drainage and unusual redness (unknown) (no (unknown) (unknown) household members: (units (unknown) date) spouse unknown) (unknown) (no (unknown) (unknown) hydroxyzine (units (un known) date) pamoate 25 mg unknown) Capsule (unknown) (no (unknown) (unknown) length discrepancy, (units (unknown) date) dislocation, unknown) stiffness, infection, nerve damage, deep venous (unknown) (no (unknown) (unknown) light touch intact (units (unknown) date) throughout LLE. unknown) Calves soft, compressible, nontender and (unknown) (no (unknown) (unknown) liner, one 6.5 mm (units (unknown) date) screw, 36 by-3 unknown) Oxinium head (unknown) (no (unknown) (unknown) not yet been (units (u nknown) date) evaluated by PT at unknown) the time of my visit. (unknown) (no (unknown) (unknown) office. No bathing (units (unknown) date) or otherwise unknown) soaking incision. Call the office if the (unknown) (no (unknown) (unknown) pain was (units (unkno wn) date) well-controlled unknown) with oral medication, including hydroxyzine. He had (unknown) (no (unknown) (unknown) patient has (units (un known) date) requested total hip unknown) replacement. The risks, benefits and (unknown) (no (unknown) (unknown) prosthetic. (units (un known) date) unknown) (unknown) (no (unknown) (unknown) rosuvastatin 5 mg (units (unknown) date) Tablet unknown) (unknown) (no (unknown) (unknown) thrombosis, (units (un known) date) pulmonary embolism, unknown) stroke, coma, heart attack, permanent paralysis (unknown) (no (unknown) (unknown) weeks for VTE (units ( unknown) date) prophylaxis. Pt has unknown) most postop meds at home; will send Vistaril (unknown) (no (unknown) (unknown) without palpable (units (unknown) date) cords or masses. unknown) Aquacel dressing CDI. Social History date description facility 2022-08-13 00:00 Never smoked tobacco (finding) [facility] Vital Signs date measurement value units 2022-08-13 00:00 BMI 36.3 kg/m2 2022-08-13 00:00 height_metric 182.88 cm 2022-08-13 00:00 height_standard 72 in 2022-08-13 00:00 weight_metric 121.56 kg 2022-08-13 00:00 weight_standard 267.99 lb 2022-08-14 00:00 BP_diastolic 56 mmHg 2022-08-14 00:00 BP_systolic 131 mmHg 2022-08-14 00:00 heart_rate 82 /min 2022-08-14 00:00 o2_saturation 95 % 2022-08-14 00:00 respiration_rate 16 /min 2022-08-14 00:00 temperature_metric 36.89 C 2022-08-14 00:00 temperature_standard 98.4 F
[2022-08-16 14:38] VITALS: BP 163/82
== END 2022-08-16 14:45 | disposition home or self-care (01) ==
LOC: ED 13:19
DX: K56.41 Fecal impaction (principal)
CPT/HCPCS: 96374; 99283; 99284; J2060

== ENCOUNTER 2023-03-21 06:25 | Day surgery (SDC) | payer OTHER ==
[2023-03-21] MEDS ORDERED: LACTATED RINGERS 1,000 ML IV ONE ×2 (06:29→08:08)
[2023-03-21] MEDS ORDERED: PROPOFOL 500 MG/50 ML 500 MG/50 ML VIAL ONE ×2 (06:51→07:50)
--- NOTE | 2023-03-21 07:05 | ANESTHESIA ---
Pre-Anesthesia VS, & Labs - Diagnosis screening - Procedure colonoscopy Height: 6 ft Weight (kg): 119.7 kg Body Mass Index: 35.8 BMI Classification: Obese - NPO >8 hours - Lab Results Lab results reviewed: Yes Home Medications and Allergies Home Medications: Ambulatory Orders Celecoxib [Celebrex] 200 mg PO DAILY 03/20/23 Rosuvastatin Calcium [Crestor] 5 mg PO DAILY 03/20/23 hydrOXYzine PAMOATE [Vistaril] 25 mg PO QPM 03/20/23 oxyCODONE [Roxicodone] 5 mg PO Q4-6H 03/20/23 Terbinafine HCl [Lamisil] 250 mg ORAL DAILY 03/21/23 Celecoxib [Celebrex] 200 mg PO DAILY 03/20/23 Rosuvastatin Calcium [Crestor] 5 mg PO DAILY 03/20/23 hydrOXYzine PAMOATE [Vistaril] 25 mg PO QPM 03/20/23 oxyCODONE [Roxicodone] 5 mg PO Q4-6H 03/20/23 Terbinafine HCl [Lamisil] 250 mg ORAL DAILY 03/21/23 Allergies/Adverse Reactions: Allergies Allergy/AdvReac Type Severity Reaction Status Date / Time alcohol Allergy Edema Verified 08/16/22 13:33 Anes History & Medical History - Anesthetic History Anesthesia Complications: reports: No previous complications Family history of Anesthesia Complications: Denies Family history of Malignant Hyperthermia: Denies - Medical History Cardiovascular: reports: High cholesterol Pulmonary: reports: None Gastrointestinal: reports: None Urinary: reports: None Neuro: reports: None Musculoskeletal: reports: Chronic back pain Endocrine/Autoimmune: reports: None Blood Disorders: reports: None Skin: reports: None Smoking Status: Never smoker Psychosocial: reports: No issues indicated - Surgical History General: reports: Colonoscopy Orthopedic: reports: Hip replacement Dermatologic: reports: Skin cancer surgery Exam General: Alert, Oriented x3, Cooperative Dental: WNL Mouth Openin Fingerbreadth Neck Mobility: Normal Mallampati classification: II Thyromental Distance: 4-6 cm Respiratory: Lungs clear Cardiovascular: Regular rate Plan Anesthesia Type: Total IV Consent for Procedure(s) Verified and Reviewed: Yes Code Status: Attempt Resuscitation ASA classification: 2-Mild systemic disease Is this case an emergency?: No
[2023-03-21] MEDS ORDERED: PROPOFOL 200 MG/20 ML VIAL IVP ONE (08:10)
[2023-03-21 08:20] VITALS: O2SAT 94
[2023-03-21 08:40] VITALS: BP 125/60
--- NOTE | 2023-03-21 09:45 | ANESTHESIA POST OP EVALUATION ---
Anesthesia Post Eval - Post Anesthesia Eval Vitals: Last Vital Signs Temp 36.7 C 03/21/23 08:08 Pulse 55 L 03/21/23 08:29 Resp 16 03/21/23 08:29 BP 125/60 03/21/23 08:29 Pulse Ox 94 03/21/23 08:29 O2 Flow Rate CV Function Including HR & BP: Stable Pain Control: Satisfactory Nausea & Vomiting: Negative Mental Status: Baseline Respiratory Status: Airway Patent Hydration Status: Satisfactory Anesthesia Complications: None
== END 2023-03-21 06:26 | disposition home or self-care (01) ==
LOC: SDS 06:25
PROVIDERS: ATTEND Surgery
DX: Z12.11 Encounter for screening for malignant neoplasm of colon (principal); K57.30 Diverticulosis of large intestine without perforation or abscess without bleeding; Z86.010 Personal history of colon polyps; E66.9 Obesity, unspecified; Z68.35 Body mass index [BMI] 35.0-35.9, adult
CPT/HCPCS: 45378; J7120